=== PATIENT | male | born 1970 | race American Indian/Alaskan Native ===

== ENCOUNTER 2021-09-04 09:14 | Inpatient (IN) | payer SELFPAY ==
[2021-09-04] MEDS ORDERED: SODIUM CHLORIDE 0.9% 500 ML 500 ML IV ONE (09:17)
[2021-09-04] MEDS ORDERED: ONDANSETRON 4 MG/2 ML INJ IV ONE (09:17)
[2021-09-04] MEDS ORDERED: SODIUM CHLORIDE 0.9% 1000 ML 1,000 ML ONE (09:18)
--- NOTE | 2021-09-04 09:23 | Emergency Department Report ---
ED Chest Pain HPI - General Chief Complaint: Chest Pain Stated Complaint: STEMI Time Seen by Provider: 09/04/21 09:16 Source: patient, EMS (Verbal report received from emergency medical services. EMS documentation not available at time of chart dictation ), RN notes reviewed Mode of arrival: Stretcher Limitations: Physical Limitation - History of Present Illness Initial Comments: This patient is a 51-year-old gentleman, who presents to the ER with EMS, with an EMS articulated complaint of inferior wall STEMI. EMS reports that the patient is hypotensive in the field, and collapsed. The patient complains of crushing central chest pain. EMS gave aspirin in the field, but appropriately did not administer nitroglycerin. The patient denies travel, surgery, immobilization, leg pain or leg swelling, DVT/PE risk factors. He denies hematemesis and bright red blood per rectum. Prehospital EKG is reviewed by myself, and I agree that is consistent with inferior wall STEMI. The prehospital EKG was transmitted to our diagnostic technologist, Dr. Perez, prior to the patient arriving to this emergency room, and cardiac catheterization lab was activated, and a code STEMI was called overhead. The patient was greeted by myself emergently in room 22, in conjunction with cardiology nurse practitioner, Mr. Joe Crane. The cardiac catheterization lab has requested that the patient be emergently transported to the catheterization lab for intervention. Heparin bolus is ordered. Defer to inpatient team to follow-up on laboratory studies, chest x-ray, and vital signs. Critical care physician, Dr. Vieyra, Will follow in consultation for ICU admission. Hospital physician, Dr. Adria Xiao, To admit patient to the medical service. Complaint: chest pain, other -: Sudden Pain Location: substernal Pain Radiation: none Severity: severe Quality: other (Crushing and pressure) Consistency: constant Improves With: nothing Worsens With: nothing Aspirin use within the Past 7 Days: (1) Yes - Related Data On Oral Contraceptives: No Home Medications Medication Instructions Recorded Confirmed Last Taken No Known Home Medications [No 09/04/21 09/04/21 Unknown Reported Home Medications] Allergies Allergy/AdvReac Type Severity Reaction Status Date / Time No Known Allergies Allergy Unverified 09/04/21 09:51 Heart Score - HEART Score History: Highly suspicious EKG: Significant ST-depression Age: < 45 Risk factors: 1-2 risk factors Troponin: < normal limit HEART Score: 5 - EKG Read Time Time EKG Completed: 09:17 EKG Read Time: 09:17 - Critical Actions Critical Actions: 4-6 pts:12-16.6% risk of adverse cardiac event. Should be admitted ED Review of Systems ROS: Stated complaint: STEMI Other details as noted in HPI Comment: Unobtainable due to pts medical conditions ED Past Medical Hx - Medications Home Medications: Home Medications Medication Instructions Recorded Confirmed Last Taken Type No Known Home Medications [No 09/04/21 09/04/21 Unknown History Reported Home Medications] ED Physical Exam - General Limitations: Physical Limitation General appearance: alert, anxious, in distress, obese - Head Head exam: Present: atraumatic, normocephalic - Eye Eye exam: Present: normal appearance, EOMI. Absent: nystagmus - ENT ENT exam: Present: normal exam, normal orophraynx, mucous membranes moist, normal external ear exam - Neck Neck exam: Present: normal inspection, full ROM. Absent: tenderness, meningismus - Respiratory Respiratory exam: Present: normal lung sounds bilaterally. Absent: respiratory distress, wheezes, rales, rhonchi, stridor - Cardiovascular Cardiovascular Exam: Present: regular rate, normal rhythm, normal heart sounds. Absent: bradycardia, tachycardia, irregular rhythm, systolic murmur, diastolic murmur, rubs, gallop - GI/Abdominal GI/Abdominal exam: Present: soft. Absent: distended, tenderness, guarding, rebound, rigid, pulsatile mass - Rectal Rectal exam: Present: deferred - Extremities Exam Extremities exam: Present: normal inspection, full ROM, other (2+ pulses noted in the bilateral upper and lower extremities. There is no palpable cord. negative Homans sign. Muscular compartments are soft. The pelvis is stable.). Absent: calf tenderness - Back Exam Back exam: Present: normal inspection. Absent: tenderness, CVA tenderness (R), CVA tenderness (L), paraspinal tenderness, vertebral tenderness - Neurological Exam Neurological exam: Present: alert, other (No facial droop. Tongue midline. Extraocular movements intact bilaterally. Facial sensation intact to light touch in V1, V2, V3 distribution bilaterally. 5 and a 5 strength in 4 extremities. Sensation intact to light touch in 4 extremities.). Absent: motor sensory deficit - Psychiatric Psychiatric exam: Present: anxious - Skin Skin exam: Present: warm, dry, intact, normal color. Absent: rash ED Course Vital Signs 09/04/21 09/04/21 09/04/21 11:13 11:32 11:40 Pulse Rate 70 81 Respiratory 23 23 Rate Blood Pressure O2 Sat by Pulse 94 93 96 Oximetry 09/04/21 09/04/21 09/04/21 11:50 12:00 12:11 Pulse Rate 66 62 Respiratory 20 17 Rate Blood Pressure 142/88 123/71 O2 Sat by Pulse 95 95 94 Oximetry - Reevaluation(s) Reevaluation #1: 09/04/21 09:42 Differential diagnosis, including but not limited to: Acute coronary syndrome, Prinzmetal's angina, pericarditis, myocarditis Assessment and plan: 51-year-old gentleman with probable inferior wall STEMI, emergently transported to the cardiac catheterization lab for cardiac catheterization and definitive therapy. Due to the time sensitive nature of STEMI, do not have complete set of vital signs here in the emergency room, nor do we have laboratory studies or x-ray. The patient is admitted to the critical care unit, with critical care, cardiology to follow in consultation and manage definitively, and hospital medicine to admit. I will defer to the inpatient team to follow-up on the ordered diagnostics. Morphine was ordered, heparin ordered, and EMS administered aspirin. VERN score - Vern Score Age > 65: (0) No Aspirin use within the Past 7 Days: (1) Yes 3 or more CAD Risk Factors: (0) No 2 or more Angina events in past 24 hrs: (0) No Known CAD with more than 50% Stenosis: (1) Yes Elevated Cardiac Markers: (0) No ST Deviation Greater than 0.5mm: (1) Yes VERN Score: 3 ED Medical Decision Making - Lab Data Result diagrams: 09/04/21 09:39 09/04/21 11:07 Vital Signs 09/04/21 09/04/21 09/04/21 11:13 11:32 11:40 Pulse Rate 70 81 Respiratory 23 23 Rate Blood Pressure O2 Sat by Pulse 94 93 96 Oximetry 09/04/21 09/04/21 09/04/21 11:50 12:00 12:11 Pulse Rate 66 62 Respiratory 20 17 Rate Blood Pressure 142/88 123/71 O2 Sat by Pulse 95 95 94 Oximetry Lab Results 09/04/21 09/04/21 09/04/21 Range/Units 09:39 09:39 09:39 WBC 5.9 (4.5-11.0) K/mm3 RBC 5.26 H (3.65-5.03) M/mm3 Hgb 14.3 (11.8-15.2) gm/dl Hct 43.4 (35.5-45.6) % MCV 82 L (84-94) fl MCH 27 L (28-32) pg MCHC 33 (32-34) % RDW 15.6 H (13.2-15.2) % Plt Count 260 (140-440) K/mm3 Lymph % (Auto) 42.0 H (13.4-35.0) % [place] % (Auto) 13.6 H (0.0-7.3) % Eos % (Auto) 1.5 (0.0-4.3) % Baso % (Auto) 0.6 (0.0-1.8) % Lymph # (Auto) 2.5 (1.2-5.4) K/mm3 [place] # (Auto) 0.8 (0.0-0.8) K/mm3 Eos # (Auto) 0.1 (0.0-0.4) K/mm3 Baso # (Auto) 0.0 (0.0-0.1) K/mm3 Seg Neutrophils % 42.3 (40.0-70.0) % Seg Neutrophils # 2.5 (1.8-7.7) K/mm3 PT 14.8 (12.2-14.9) Sec. INR 1.04 (0.87-1.13) APTT 194.7 H* (24.2-36.6) Sec. Sodium 131 L (137-145) mmol/L Potassium 2.9 L* (3.6-5.0) mmol/L Chloride 97.4 L (98-107) mmol/L Carbon Dioxide 18 L (22-30) mmol/L Anion Gap 19 mmol/L BUN 16 (9-20) mg/dL Creatinine 1.0 (0.8-1.3) mg/dL Estimated GFR > 60 ml/min BUN/Creatinine Ratio 16 % Glucose 160 H (75-100) mg/dL Calcium 9.1 (8.4-10.2) mg/dL Total Creatine Kinase 90 (55-170) units/L CK-MB (CK-2) 1.4 (0.0-4.0) ng/mL CK-MB (CK-2) Rel Index 1.5 (0-4) Troponin T < 0.010 (0.00-0.029) ng/mL Blood Type Antibody Screen 09/04/21 Range/Units 10:30 WBC (4.5-11.0) K/mm3 RBC (3.65-5.03) M/mm3 Hgb (11.8-15.2) gm/dl Hct (35.5-45.6) % MCV (84-94) fl MCH (28-32) pg MCHC (32-34) % RDW (13.2-15.2) % Plt Count (140-440) K/mm3 Lymph % (Auto) (13.4-35.0) % [place] % (Auto) (0.0-7.3) % Eos % (Auto) (0.0-4.3) % Baso % (Auto) (0.0-1.8) % Lymph # (Auto) (1.2-5.4) K/mm3 [place] # (Auto) (0.0-0.8) K/mm3 Eos # (Auto) (0.0-0.4) K/mm3 Baso # (Auto) (0.0-0.1) K/mm3 Seg Neutrophils % (40.0-70.0) % Seg Neutrophils # (1.8-7.7) K/mm3 PT (12.2-14.9) Sec. INR (0.87-1.13) APTT (24.2-36.6) Sec. Sodium (137-145) mmol/L Potassium (3.6-5.0) mmol/L Chloride (98-107) mmol/L Carbon Dioxide (22-30) mmol/L Anion Gap mmol/L BUN (9-20) mg/dL Creatinine (0.8-1.3) mg/dL Estimated GFR ml/min BUN/Creatinine Ratio % Glucose (75-100) mg/dL Calcium (8.4-10.2) mg/dL Total Creatine Kinase (55-170) units/L CK-MB (CK-2) (0.0-4.0) ng/mL CK-MB (CK-2) Rel Index (0-4) Troponin T (0.00-0.029) ng/mL Blood Type A POSITIVE Antibody Screen Negative - EKG Data -: EKG Interpreted by Me - EKG Data When compared to previous EKG there are: previous EKG unavailable 09/04/21 09:43 EKG in the emergency room is interpreted at 09: 1 7 This is a sinus rhythm, with a rate of 88 bpm. There is a normal axis, normal P wave axis, high left ventricular voltage, ST elevation in the inferior leads, and T wave inversion in aVL. This EKG is consistent with an acute STEMI. There is a first-degree AV block, and there is no prior for comparison. Critical Care Time: Yes Critical care time in (mins) excluding proc time.: 35 Critical care attestation.: If time is entered above; I have spent that time in minutes in the direct care of this critically ill patient, excluding procedure time. ED Disposition Clinical Impression: STEMI (ST elevation myocardial infarction) Disposition: ADMITTED INPATIENT Is pt being admited?: Yes Does the pt Need Aspirin: No (GIVEN BY EMS) Condition: Critical
[2021-09-04] MEDS ORDERED: NITROGLYCERIN DRIP 50 MG/250 ML BOTTLE ONE (09:31)
[2021-09-04] MEDS: MIDAZOLAM 2 MG/2 ML INJ ONE ×2 (09:37→09:54)
[2021-09-04] MEDS: fentaNYL 100 MCG/2 ML INJ ONE ×2 (09:37→09:54)
[2021-09-04] MEDS ORDERED: HEPARIN/NS 5000 UNIT/500ML 500 ML IR ONE (09:39)
[2021-09-04] MEDS ORDERED: LIDOCAINE (2%) 20 MG/1 ML VIAL 50 ML MDV INFILTRATI ONE (09:42)
[2021-09-04] MEDS ORDERED: VERAPAMIL 5 MG/2 ML INJ ONE (09:42)
[2021-09-04] MEDS ORDERED: NITROGLYCERIN SYRINGE 3 ML ONE (09:42)
[2021-09-04 09:49] LABS: Basophils % (Auto) 0.6 % (0.0-1.8); Eosinophils # (Auto) 0.1 K/mm3 (0.0-0.4); Eosinophils % (Auto) 1.5 % (0.0-4.3); Hematocrit 43.4 % (35.5-45.6); Hemoglobin 14.3 gm/dl (11.8-15.2); Lymphocytes # (Auto) 2.5 K/mm3 (1.2-5.4); Mean Corpuscular HGB Conc 33 % (32-34); Mean Corpuscular Volume 82 fl (84-94); Monocytes # (Auto) 0.8 K/mm3 (0.0-0.8); Monocytes % (Auto) 13.6 % (0.0-7.3); Platelet Count 260 K/mm3 (140-440); Red Blood Count 5.26 M/mm3 (3.65-5.03); Red Cell Distribution Width 15.6 % (13.2-15.2)
[2021-09-04] MEDS: HEPARIN 1,000 UNIT/1 ML VIAL IV ONE ×2 (09:49→10:17)
[2021-09-04] MEDS ORDERED: MORPHINE 10 MG/1 ML INJ ONE (10:02)
[2021-09-04] MEDS: MORPHINE 4 MG/1 ML INJ IV ONE (10:03)
[2021-09-04 10:06] LABS: Creatine Kinase MB 1.4 ng/mL (0.0-4.0)
[2021-09-04 10:07] LABS: BUN/Creatinine Ratio 16; Blood Urea Nitrogen 16 mg/dL (9-20); Calcium 9.1 mg/dL (8.4-10.2); Hemolysis Index 4
[2021-09-04 10:28] LABS: INR 1.04 (0.87-1.13)
[2021-09-04] MEDS ORDERED: TICAGRELOR 90 MG TAB ONE (10:35)
[2021-09-04] MEDS ORDERED: ACETAMINOPHEN 325 MG TAB PO PRN (11:03)
[2021-09-04] MEDS ORDERED: ONDANSETRON 4 MG/2 ML INJ IV PRN (11:03)
[2021-09-04] MEDS ORDERED: HYDROmorphone 1 MG/1 ML INJ IV PRN (11:05)
[2021-09-04] MEDS ORDERED: MORPHINE 2 MG/1 ML INJ IV PRN (11:05)
[2021-09-04] MEDS ORDERED: METOCLOPRAMIDE 10 MG/2 ML INJ IV PRN (11:05)
[2021-09-04] MEDS ORDERED: SODIUM CHLORIDE 0.9% 1000 ML 1,000 ML IV SCH (11:15)
[2021-09-04] MEDS ORDERED: traMADol 50 MG TAB PO PRN (12:07)
[2021-09-04 12:24] LABS: Partial Thromboplastin Time 194.7 Sec. (24.2-36.6)
[2021-09-04 12:52] LABS: Alanine Aminotransferase 28 units/L (7-56); BUN/Creatinine Ratio 20; Blood Urea Nitrogen 16 mg/dL (9-20); Calcium 8.4 mg/dL (8.4-10.2); Hemolysis Index 9
[2021-09-04] MEDS ORDERED: HEPARIN 10,000 UNITS/10 ML VIAL IV PRN (13:07)
[2021-09-04] MEDS: POTASSIUM CHLORIDE ER 20 MEQ TAB PO SCH (13:49)
[2021-09-04] MEDS ORDERED: HEPARIN/ 0.45% NACL DRIP 25,000 UNIT/500 ML BAG IV SCH (14:00)
[2021-09-04] MEDS ORDERED: CLOPIDOGREL 300 MG TAB PO SCH (14:00)
[2021-09-04 14:04] LABS: Creatine Kinase MB 11.6 ng/mL (0.0-4.0)
[2021-09-04 14:44] LABS: Hematocrit 42.3 % (35.5-45.6); Hemoglobin 13.5 gm/dl (11.8-15.2)
--- NOTE | 2021-09-04 15:15 | Consultation ---
History of Present Illness Consult date: 09/04/21 Requesting physician: KIMBERLY BROCK Reason for consult: other (STEMI) History of present illness: PULMONARY/CCM CONSULT NOTE (Full dictation # [id number]) Please see dictated notes for full details Medications and Allergies Allergies Allergy/AdvReac Type Severity Reaction Status Date / Time No Known Allergies Allergy Unverified 09/04/21 09:51 Home Medications Medication Instructions Recorded Confirmed Last Taken Type No Known Home Medications [No 09/04/21 09/04/21 Unknown History Reported Home Medications] Active Meds: Active Medications Acetaminophen (Acetaminophen 325 Mg Tab) 650 mg PO Q4H PRN PRN Reason: Fever >100.5/[facility] Hydrocodone Bitart/Acetaminophen (Hydrocodone/Acetaminophen 5-325 Mg Tab) 1 each PO Q4H PRN PRN Reason: Pain, Moderate (4-6) Aspirin (Aspirin 81 Mg Tab Chew) 81 mg PO QDAY [facility] Atorvastatin Calcium (Atorvastatin 40 Mg Tab) 80 mg PO QHS [facility] Clopidogrel Bisulfate (Clopidogrel 300 Mg Tab) 300 mg PO ONCE@1400 [facility] Stop: 09/04/21 18:00 Clopidogrel Bisulfate (Clopidogrel 75 Mg Tab) 75 mg PO QDAY [facility] Heparin Sodium (Porcine) (Heparin 10,000 Units/10 Ml Vial) 4,800 unit 40 unit/kg (4800 unit) IV Q6H PRN PRN Reason: Anti-Xa Assay < 0.1 units/ml Sodium Chloride (Nacl 0.9% 1000 Ml) 1,000 mls @ 75 mls/hr IV DIRECT [facility] Stop: 09/05/21 10:00 Heparin Sodium/Sodium Chloride (Heparin/ 0.45% Nacl-25,000 Unit/500 Ml) 25,000 unit in 500 mls @ 20 mls/hr IV TITRATE [facility]; Protocol Last Admin: 09/04/21 13:49 Dose: 1,000 units/hr, 20 mls/hr Metoclopramide HCl (Metoclopramide 10 Mg/2 Ml Inj) 10 mg IV Q6H PRN PRN Reason: Nausea And Vomiting Metoprolol Tartrate (Metoprolol Tartrate 50 Mg Tab) 50 mg PO BID [facility] Ondansetron HCl (Ondansetron 4 Mg/2 Ml Inj) 4 mg IV Q3H PRN PRN Reason: Nausea And Vomiting Potassium Chloride (Potassium Chloride Er 20 Meq Tab) 40 meq PO Q4H [facility] Stop: 09/04/21 18:01 Last Admin: 09/04/21 13:49 Dose: 40 meq Sodium Chloride (Sodium Chloride 0.9% 10 Ml Flush Syringe) 10 ml IV BID GRACE Sodium Chloride (Sodium Chloride 0.9% 10 Ml Flush Syringe) 10 ml IV PRN PRN PRN Reason: LINE FLUSH Tramadol HCl (Tramadol 50 Mg Tab) 50 mg PO Q4H PRN PRN Reason: Pain, Mild (1-3) Physical Examination Vital signs: Vital Signs Pulse Ox 94 09/04/21 11:13 Results - Laboratory Findings CBC and BMP: 09/04/21 12:54 09/04/21 11:07 PT/INR, D-dimer PT 14.8 Sec. (12.2-14.9) 09/04/21 09:39 INR 1.04 (0.87-1.13) 09/04/21 09:39 Abnormal lab findings: Abnormal Labs 09/04/21 09/04/21 09/04/21 09:39 09:39 09:39 RBC 5.26 H MCV 82 L MCH 27 L RDW 15.6 H Lymph % (Auto) 42.0 H [place] % (Auto) 13.6 H APTT 194.7 H* Sodium 131 L Potassium 2.9 L* Chloride 97.4 L Carbon Dioxide 18 L Glucose 160 H Total Creatine Kinase CK-MB (CK-2) CK-MB (CK-2) Rel Index Troponin T 09/04/21 09/04/21 11:07 12:37 RBC MCV MCH RDW Lymph % (Auto) [place] % (Auto) APTT Sodium 128 L Potassium 3.1 L Chloride 95.0 L Carbon Dioxide Glucose 154 H Total Creatine Kinase 189 H CK-MB (CK-2) 11.6 H CK-MB (CK-2) Rel Index 6.1 H Troponin T 0.093 H
[2021-09-04] MEDS ORDERED: DEXTROSE 50% IN WATER (25GM) 50 ML SYRINGE IV PRN (15:29)
--- NOTE | 2021-09-04 16:14 | Consultation ---
History of Present Illness Consult date: 09/04/21 Requesting physician: KIMBERLY BROCK Consult reason: other (STEMI) History of present illness: Patient is a 51-year-old male who denies any past medical history who states that he woke up this morning feeling well went to go see his p.o. when suddenly he developed chest pain and left arm tingling. Patient reported 10 out of 10 crushing chest pain. EMS was called for evaluation, found to be hypotensive, patient was given aspirin, and transported to the [facility] for further evaluation. EKG revealed patient to have an acute STEMI. Patient denies any complaints of shortness of breath, nausea, vomiting or diaphoresis. Patient brought to [facility] for further intervention. Cardiology is consulted for STEMI. Patient is previously unknown to our practice. Past History Past Medical History: No medical history Social history: smoking Family history: CAD Medications and Allergies Allergies Allergy/AdvReac Type Severity Reaction Status Date / Time No Known Allergies Allergy Unverified 09/04/21 09:51 Home Medications Medication Instructions Recorded Confirmed Last Taken Type No Known Home Medications [No 09/04/21 09/04/21 Unknown History Reported Home Medications] Active Meds: Active Medications Acetaminophen (Acetaminophen 325 Mg Tab) 650 mg PO Q4H PRN PRN Reason: Fever >100.5/[place] Hydrocodone Bitart/Acetaminophen (Hydrocodone/Acetaminophen 5-325 Mg Tab) 1 each PO Q4H PRN PRN Reason: Pain, Moderate (4-6) Aspirin (Aspirin 81 Mg Tab Chew) 81 mg PO QDAY [facility] Atorvastatin Calcium (Atorvastatin 40 Mg Tab) 80 mg PO QHS [facility] Clopidogrel Bisulfate (Clopidogrel 300 Mg Tab) 300 mg PO ONCE@1400 [facility] Stop: 09/04/21 18:00 Clopidogrel Bisulfate (Clopidogrel 75 Mg Tab) 75 mg PO QDAY [facility] Dextrose (Dextrose 50% In Water (25gm) 50 Ml Syringe) 50 ml IV Q30MIN PRN; Protocol PRN Reason: Hypoglycemia Famotidine (Famotidine 20 Mg Tab) 20 mg PO QHS [facility] Heparin Sodium (Porcine) (Heparin 10,000 Units/10 Ml Vial) 4,800 unit 40 unit/kg (4800 unit) IV Q6H PRN PRN Reason: Anti-Xa Assay < 0.1 units/ml Sodium Chloride (Nacl 0.9% 1000 Ml) 1,000 mls @ 75 mls/hr IV DIRECT [facility]ACE Stop: 09/05/21 10:00 Heparin Sodium/Sodium Chloride (Heparin/ 0.45% Nacl-25,000 Unit/500 Ml) 25,000 unit in 500 mls @ 20 mls/hr IV TITRATE GRACE; Protocol Last Admin: 09/04/21 13:49 Dose: 1,000 units/hr, 20 mls/hr Nitroglycerin/Dextrose (Tridil Drip 50mg/250ml) 50 mg in 250 mls @ 3 mls/hr IV TITR GRACE; Protocol Insulin Human Regular (Insulin Regular, Human 100 Units/1 Ml) 0 units SUB-Q ACH S GRACE; Protocol Metoclopramide HCl (Metoclopramide 10 Mg/2 Ml Inj) 10 mg IV Q6H PRN PRN Reason: Nausea And Vomiting Metoprolol Tartrate (Metoprolol Tartrate 50 Mg Tab) 50 mg PO BID GRACE Ondansetron HCl (Ondansetron 4 Mg/2 Ml Inj) 4 mg IV Q3H PRN PRN Reason: Nausea And Vomiting Potassium Chloride (Potassium Chloride Er 20 Meq Tab) 40 meq PO Q4H [facility] Stop: 09/04/21 18:01 Last Admin: 09/04/21 13:49 Dose: 40 meq Sodium Chloride (Sodium Chloride 0.9% 10 Ml Flush Syringe) 10 ml IV BID GRACE Sodium Chloride (Sodium Chloride 0.9% 10 Ml Flush Syringe) 10 ml IV PRN PRN PRN Reason: LINE FLUSH Tramadol HCl (Tramadol 50 Mg Tab) 50 mg PO Q4H PRN PRN Reason: Pain, Mild (1-3) Review of Systems Constitutional: no weight loss, no weight gain Ears, nose, mouth and throat: no nasal discharge, no sinus pressure, no sinus pain Cardiovascular: chest pain, no shortness of breath, no dyspnea on exertion Respiratory: no cough, no cough with sputum, no excessive sputum, no hemoptysis Gastrointestinal: no abdominal pain, no nausea, no vomiting Musculoskeletal: no neck stiffness, no neck pain Integumentary: no rash, no pruritis, no redness Neurological: no head injury, no transient paralysis Psychiatric: no anxiety, no memory loss Endocrine: no cold intolerance, no heat intolerance Hematologic/Lymphatic: no easy bruising, no easy bleeding Physical Examination Vital Signs Pulse Ox 94 09/04/21 11:13 General appearance: no acute distress HEENT: Positive: PERRL Neck: Positive: trachea midline Cardiac: Positive: Reg Rate and Rhythm Lungs: Positive: Normal Breath Sounds Neuro: Positive: Grossly Intact Abdomen: Positive: Soft, Active Bowel Sounds Skin: Negative: Rash, Suspicious Lesions, Ulceration Extremities: Present: upper extr. pulses. Absent: edema Results 09/04/21 12:54 09/04/21 11:07 Cardiac Enzymes 09/04/21 09/04/21 09/04/21 Range/Units 09:39 11:07 12:37 AST 22 (5-40) units/L CK-MB (CK-2) 1.4 11.6 H (0.0-4.0) ng/mL Coagulation 09/04/21 Range/Units 09:39 PT 14.8 (12.2-14.9) Sec. INR 1.04 (0.87-1.13) APTT 194.7 H* (24.2-36.6) Sec. CBC 09/04/21 09/04/21 Range/Units 09:39 12:54 WBC 5.9 (4.5-11.0) K/mm3 RBC 5.26 H (3.65-5.03) M/mm3 Hgb 14.3 13.5 (11.8-15.2) gm/dl Hct 43.4 42.3 (35.5-45.6) % Plt Count 260 244 (140-440) K/mm3 Lymph # (Auto) 2.5 (1.2-5.4) K/mm3 [place] # (Auto) 0.8 (0.0-0.8) K/mm3 Eos # (Auto) 0.1 (0.0-0.4) K/mm3 Baso # (Auto) 0.0 (0.0-0.1) K/mm3 Comprehensive Metabolic Panel 09/04/21 09/04/21 Range/Units 09:39 11:07 Sodium 131 L 128 L (137-145) mmol/L Potassium 2.9 L* 3.1 L (3.6-5.0) mmol/L Chloride 97.4 L 95.0 L (98-107) mmol/L Carbon Dioxide 18 L 23 (22-30) mmol/L BUN 16 16 (9-20) mg/dL Creatinine 1.0 0.8 (0.8-1.3) mg/dL Glucose 160 H 154 H (75-100) mg/dL Calcium 9.1 8.4 (8.4-10.2) mg/dL AST 22 (5-40) units/L ALT 28 (7-56) units/L Alkaline Phosphatase 74 (35-129) units/L Total Protein 6.9 (6.3-8.2) g/dL Albumin 4.0 (3.9-5) g/dL - Imaging and Cardiology Echo: pending Cardiac cath: pending EKG interpretations - Telemetry EKG Rhythm: Sinus Rhythm - EKG Sinus rhythms and dysrhythmias: sinus rhythm Myocardial infarction: inferior CO (acute or rec Assessment and Plan Patient is a 51-year-old male who denies any past medical history who was found to have a STEMI STEMI s/p PCI of mid circumflex Tobacco use Plan: EKG shows STEMI and inferior leads Patient for cardiac cath. Patient had stent placed and mid circumflex. See cath report for full details Initiate heparin drip for 24 hours Initiate nitroglycerin drip for pain and blood pressure for 24 hours Initiated dual antiplatelet therapy with aspirin and Plavix. Load patient with Plavix today Initiate metoprolol 50 mg p.o. twice daily and Lipitor 80 mg p.o. nightly Echo pending Trend cardiac enzyme Discussed with patient plan of care and importance of medication compliance. Patient verbalized acknowledgment and agreement Patient seen in conjunction with Dr. Rosas who agrees with this plan of care - Patient Problems (1) STEMI (ST elevation myocardial infarction) Current Visit: Yes Status: Acute
[2021-09-04] MEDS ORDERED: INSULIN REGULAR, HUMAN 100 UNITS/1 ML SUB-Q SCH (16:30)
[2021-09-04] MEDS ORDERED: NITROGLYCERIN DRIP 50 MG/250 ML BOTTLE IV SCH (17:00)
--- NOTE | 2021-09-04 17:22 | Electrocardiograph Report ---
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
[2021-09-04] MEDS: HYDROcodone/ACETAMINOPHEN 5-325 MG TAB PO PRN ×2 (17:45→22:41)
--- NOTE | 2021-09-04 21:17 | Cardiac Catherization Report ---
DATE OF SERVICE: 09/04/2021 CARDIAC CATHETERIZATION AND CORONARY ANGIOGRAPHY REPORT INDICATIONS FOR PROCEDURE: The patient is a 51-year-old -[place] gentleman with no previous medical history, denied any previous cardiac history, on no medication. Smokes 1 pack per day and uses marijuana. He had an acute onset of chest pain and called the paramedics because of chest pain and shortness of breath and EKG evaluated by the paramedics en route and also by the Emergency Room physician, was noted to be showing ST elevations in the inferior leads consistent with the acute inferior injury. Hence, a STEMI protocol was followed and the patient was brought to the catheterization laboratory on an emergency basis. The patient was explained of the diagnosis and is willing to proceed with angiography and intervention if indicated. DESCRIPTION OF PROCEDURE: Then subsequently, the patient was brought to the catheterization laboratory in a chest pain. Blood pressure is elevated and started on IV nitroglycerin. The patient received aspirin and heparin in the Emergency Room. The patient was prepared in the usual fashion. Right wrist area and forearm were thoroughly cleansed with chlorhexidine solution. Sterile drapes were applied. Local anesthesia was given using 2% Xylocaine. Right radial artery access was obtained using 21-gauge arterial puncture needle. A 5-Bur[place] slender sheath was introduced. Initial angiograms of the right coronary artery were obtained using a JR4 guiding catheter and also left ventriculogram was performed using the same catheter. A JL3.5 guiding catheter was used to engage the left coronary artery, this showed evidence of occluded dominant circumflex in the mid part. It was felt that this is the culprit lesion and after obtaining the angiograms, this procedure was converted into interventional procedure. 1. Left heart catheterization and coronary angiography showed left ventriculogram done in LOO projection using hand injection, showed small area of hypokinesis in the inferolateral area. Overall, ejection fraction was felt to be within normal limits. Left ventricular size appeared to be normal. 2. Right coronary artery arises normally from right coronary cusp. There is normal sized right coronary artery, which is a codominant vessel, is showing mild disease. However, there is a fairly large second vessel paralleling the RCA, which is a medium size vessel, shows 50-60% lesion in the mid part, but this is smooth. VERN 3 flow was noted. 3. Left coronary artery arises normally from left coronary cusp. No calcifications noted. Left main without significant disease. LAD, which curves around the apex shows mild 20% lesion in the proximal part. Rest of the LAD shows mild smooth irregularities. Diagonal branches without significant disease. Circumflex artery is represented by multiple branches. However, there is occlusion of the mid part of the circumflex artery in the AV groove before giving rise to a fairly large LV branch and PDA. This appears to be thrombotic. No collaterals were noted. Distal vessel is barely visualized with a VERN 3 flow being zero. Considering the above angiographic pictures, it was converted into intervention of the mid circumflex area. Intervention of the mid circumflex area. The patient has indwelling JL3.[address] Received extra dose of IV heparin. The patient is still having chest pain. Received IV Versed and fentanyl in addition to morphine. The patient is in sinus rhythm with persistent ST elevations. A 0.014 inch Irene XT guidewire was advanced into the distal circumflex artery without difficulty. The lesion initially was dilated with 3.0 x 15 mm Trek balloon few times and VERN 0 flow was converted to VERN 3 flow. Subsequently attempted to insert a 3.5 x 22 mm Tomas Resolute stent. During the attempt, there is a dislocation of the guiding catheter and a complete system including the wire and stent were removed. Re-engaged the left coronary artery and initially 1 Irene XT guidewire was advanced into the mid circumflex artery. A second Irene XT guidewire was advanced into the distal circumflex artery. Subsequently, lesion occluded again and requiring balloon dilation with 3.0 x 15 mm Trek balloon followed by placement of a 3.5 x 22 mm Resolute Tomas stent with some difficulty. However, this stent was placed in the appropriate location and inflated up to 14 atmospheres with very good result. VERN 3 flow was noted post-procedure. No distal embolization or perforation or dissection noted. The patient's chest pain markedly improved. EKG changes improved. Hemodynamically stable. The patient remained in sinus rhythm except for PVCs during reperfusion. At the end of the procedure, the patient's chest pain is markedly improved and EKG changes namely ST elevations in the inferior leads normalized. ACT was checked and it was more than 300 seconds. The patient was given Brilinta 180 mg in the catheterization laboratory. Blood pressure is still elevated and continued on IV nitroglycerin. The lesion in the mid circumflex artery, which is very thrombotic markedly improved with balloon angioplasty and stent placement. VERN 0 flow was converted to VERN III flow. No complications noted. The patient tolerated the procedure well. Final angiograms once were showing no complications, equipment was removed. Radial band will be applied for hemostasis. The patient received as mentioned above Brilinta in addition to aspirin in the catheterization laboratory. FINAL IMPRESSION: Uncomplicated balloon angioplasty and drug-eluting stent placement of the mid circumflex artery, which is a dominant vessel with very good result. Proximal vessel is tortuous, making tracking of the stent difficult. Findings were explained to the patient. I explained the importance of risk factor modification including quitting smoking. The patient will be started on aspirin, antiplatelet agent, Brilinta; however, it was decided later to change to Plavix considering insurance purposes and continued on Lopressor 50 mg b.i.d. in addition to atorvastatin 80 mg. We will monitor his blood pressure. Continue IV nitroglycerin and IV heparin for now. The patient tolerated the procedure well. No untoward complications were noted. TID: [id number] RECEIPT: [id number] JARVIS/VINCE
[2021-09-04 21:36] LABS: Creatine Kinase MB 67.8 ng/mL (0.0-4.0)
[2021-09-04 21:38] LABS: Chol/HDL Ratio 6.09 %
[2021-09-04 21:39] LABS: INR 0.94 (0.87-1.13)
[2021-09-04 21:40] LABS: Partial Thromboplastin Time 46.5 Sec. (24.2-36.6)
[2021-09-04] MEDS ORDERED: TICAGRELOR 90 MG TAB PO SCH (22:00)
[2021-09-04] MEDS: METOPROLOL TARTRATE 50 MG TAB PO SCH (22:43)
[2021-09-04] MEDS: FAMOTIDINE 20 MG TAB PO SCH (22:44)
--- NOTE | 2021-09-05 01:25 | History and Physical Report ---
History of Present Illness Date of examination: 09/04/21 Date of admission: 09/04/21 11:03 Chief complaint: Crushing chest pain around 8:30 AM History of present illness: 51-year-old male comes in for crushing central chest pain since 19 minutes. EMS was called. Patient was hypotensive and passed out. Chest pain is about 10 on a scale of 1-10. Diaphoresis present. EMS gave aspirin in the field. Did not administer nitroglycerin because of the low blood pressure. Patient denies travel. No recent immobilization. No hematemesis. No fever or chills. Code STEMI was called because her EKG changes consistent with inferior wall STEMI. Prehospital EKG was transmitted to the bar staff . Patient was immediately taken to the Cost Coordinator for code STEMI Heart Score - HEART Score History: Highly suspicious EKG: Significant ST-depression Age: < 45 Risk factors: 1-2 risk factors Troponin: < normal limit HEART Score: 5 - EKG Read Time Time EKG Completed: :17 EKG Read Time: :17 - Critical Actions Critical Actions: 4-6 pts:12-16.6% risk of adverse cardiac event. Should be admitted Past medical history none past surgical history not available family history Htn social history smokes 1 pack a day and marijuana intermittently Review of Systems ROS: CVS crushing chest pain for 1 hour prior to admission and shortness of breath and diaphoresis and syncope Constitutional no weight loss or weight gain no fever or chills HEENT no sore throat no post nasal drip no diplopia Neck no neck stiffness no lymph gland enlargement Chest and lungs no shortness of breath cough or wheezing GI no nausea no vomiting no diarrhea Genitourinary system no dysuria no flank pain Musculoskeletal system no muscle pains no joint pains 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 Skin no rash no itching Psychiatric no depression no homicidal or suicidal tendencies Hematologic no lymphedema or bruising Endocrine no polydipsia no polyuria no cold intolerance no heat intolerance Past History Past Medical History: No medical history Social history: smoking Family history: CAD Medications and Allergies Allergies Allergy/AdvReac Type Severity Reaction Status Date / Time No Known Allergies Allergy Unverified 09/04/21 09:51 Home Medications Medication Instructions Recorded Confirmed Last Taken Type No Known Home Medications [No 09/04/21 09/04/21 Unknown History Reported Home Medications] Active Meds: Active Medications Acetaminophen (Acetaminophen 325 Mg Tab) 650 mg PO Q4H PRN PRN Reason: Fever >100.5/HAWTHORNE Hydrocodone Bitart/Acetaminophen (Hydrocodone/Acetaminophen 5-325 Mg Tab) 1 each PO Q4H PRN PRN Reason: Pain, Moderate (4-6) Last Admin: 09/04/21 22:41 Dose: 1 each Aspirin (Aspirin 81 Mg Tab Chew) 81 mg PO QDAY GRACE Atorvastatin Calcium (Atorvastatin 40 Mg Tab) 80 mg PO QHS GRACE Last Admin: 09/04/21 22:42 Dose: 80 mg Clopidogrel Bisulfate (Clopidogrel 75 Mg Tab) 75 mg PO QDAY GRACE Dextrose (Dextrose 50% In Water (25gm) 50 Ml Syringe) 50 ml IV Q30MIN PRN; Protocol PRN Reason: Hypoglycemia Famotidine (Famotidine 20 Mg Tab) 20 mg PO QHS GRACE Last Admin: 09/04/21 22:44 Dose: 20 mg Heparin Sodium (Porcine) (Heparin 10,000 Units/10 Ml Vial) 4,800 unit 40 unit/kg (4800 unit) IV Q6H PRN PRN Reason: Anti-Xa Assay < 0.1 units/ml Sodium Chloride (Nacl 0.9% 1000 Ml) 1,000 mls @ 75 mls/hr IV DIRECT GRACE Stop: 09/05/21 10:00 Heparin Sodium/Sodium Chloride (Heparin/ 0.45% Nacl-25,000 Unit/500 Ml) 25,000 unit in 500 mls @ 20 mls/hr IV TITRATE GRACE; Protocol Last Admin: 09/04/21 13:49 Dose: 1,000 units/hr, 20 mls/hr Nitroglycerin/Dextrose (Tridil Drip 50mg/250ml) 50 mg in 250 mls @ 3 mls/hr IV TITR GRACE; Protocol Last Titration: 09/04/21 18:19 Dose: 45 mcg/min, 13.5 mls/hr Insulin Human Regular (Insulin Regular, Human 100 Units/1 Ml) 0 units SUB-Q ACHS GRACE; Protocol Metoclopramide HCl (Metoclopramide 10 Mg/2 Ml Inj) 10 mg IV Q6H PRN PRN Reason: Nausea And Vomiting Metoprolol Tartrate (Metoprolol Tartrate 50 Mg Tab) 50 mg PO BID GRACE Last Admin: 09/04/21 22:43 Dose: 50 mg Ondansetron HCl (Ondansetron 4 Mg/2 Ml Inj) 4 mg IV Q3H PRN PRN Reason: Nausea And Vomiting Sodium Chloride (Sodium Chloride 0.9% 10 Ml Flush Syringe) 10 ml IV BID GRACE Last Admin: 09/04/21 22:46 Dose: 10 ml Sodium Chloride (Sodium Chloride 0.9% 10 Ml Flush Syringe) 10 ml IV PRN PRN PRN Reason: LINE FLUSH Tramadol HCl (Tramadol 50 Mg Tab) 50 mg PO Q4H PRN PRN Reason: Pain, Mild (1-3) Exam - Constitutional Vitals: Temp Pulse Resp BP Pulse Ox 98.0 F 96 H 13 137/83 96 09/05/21 00:00 09/04/21 22:43 09/04/21 20:00 09/04/21 22:43 09/04/21 20:00 General appearance: Present: no acute distress, mild distress, well-nourished - EENT Eyes: Present: PERRL ENT: hearing intact, clear oral mucosa - Neck Neck: Present: supple, normal ROM - Respiratory Respiratory effort: normal Respiratory: bilateral: CTA - Cardiovascular Heart rate: 78 Rhythm: regular Heart Sounds: Present: S1 & S2. Absent: rub, click - Extremities Extremities: pulses symmetrical, No edema Peripheral Pulses: within normal limits - Abdominal General gastrointestinal: Present: soft, non-tender, non-distended, normal bowel sounds Male genitourinary: Present: normal - Integumentary Integumentary: Present: clear, warm, dry - Musculoskeletal Musculoskeletal: gait normal, strength equal bilaterally - Psychiatric Psychiatric: appropriate mood/affect, intact judgment & insight - Neurologic Neurologic: CNII-XII intact, moves all extremities HEART Score - HEART Score EKG: Significant ST-depression Age: < 45 Risk factors: 1-2 risk factors Troponin: Troponin T 1.380 ng/mL (0.00-0.029) H* D 09/04/21 21:07 Troponin: < normal limit - Critical Actions Critical Actions: 4-6 pts:12-16.6% risk of adverse cardiac event. Should be admitted Results - Labs CBC & Chem 7: 09/04/21 12:54 09/04/21 11:07 Labs: Laboratory Last Values WBC 5.9 K/mm3 (4.5-11.0) 09/04/21 09:39 RBC 5.26 M/mm3 (3.65-5.03) H 09/04/21 09:39 Hgb 13.5 gm/dl (11.8-15.2) 09/04/21 12:54 Hct 42.3 % (35.5-45.6) 09/04/21 12:54 MCV 82 fl (84-94) L 09/04/21 09:39 MCH 27 pg (28-32) L 09/04/21 09:39 MCHC 33 % (32-34) 09/04/21 09:39 RDW 15.6 % (13.2-15.2) H 09/04/21 09:39 Plt Count 244 K/mm3 (140-440) 09/04/21 12:54 Lymph % (Auto) 42.0 % (13.4-35.0) H 09/04/21 09:39 Wayne % (Auto) 13.6 % (0.0-7.3) H 09/04/21 09:39 Eos % (Auto) 1.5 % (0.0-4.3) 09/04/21 09:39 Baso % (Auto) 0.6 % (0.0-1.8) 09/04/21 09:39 Lymph # (Auto) 2.5 K/mm3 (1.2-5.4) 09/04/21 09:39 Wayne # (Auto) 0.8 K/mm3 (0.0-0.8) 09/04/21 09:39 Eos # (Auto) 0.1 K/mm3 (0.0-0.4) 09/04/21 09:39 Baso # (Auto) 0.0 K/mm3 (0.0-0.1) 09/04/21 09:39 Seg Neutrophils % 42.3 % (40.0-70.0) 09/04/21 09:39 Seg Neutrophils # 2.5 K/mm3 (1.8-7.7) 09/04/21 09:39 PT 13.6 Sec. (12.2-14.9) 09/04/21 21:07 INR 0.94 (0.87-1.13) 09/04/21 21:07 APTT 46.5 Sec. (24.2-36.6) H 09/04/21 21:07 Sodium 128 mmol/L (137-145) L 09/04/21 11:07 Potassium 3.1 mmol/L (3.6-5.0) L 09/04/21 11:07 Chloride 95.0 mmol/L (98-107) L 09/04/21 11:07 Carbon Dioxide 23 mmol/L (22-30) 09/04/21 11:07 Anion Gap 13 mmol/L 09/04/21 11:07 BUN 16 mg/dL (9-20) 09/04/21 11:07 Creatinine 0.8 mg/dL (0.8-1.3) 09/04/21 11:07 Estimated GFR > 60 ml/min 09/04/21 11:07 BUN/Creatinine Ratio 20 % 09/04/21 11:07 Glucose 154 mg/dL (75-100) H 09/04/21 11:07 Hemoglobin A1c 6.1 % (4-6) H 09/04/21 21:07 Calcium 8.4 mg/dL (8.4-10.2) 09/04/21 11:07 Total Bilirubin 0.20 mg/dL (0.1-1.2) 09/04/21 11:07 AST 22 units/L (5-40) 09/04/21 11:07 ALT 28 units/L (7-56) 09/04/21 11:07 Alkaline Phosphatase 74 units/L (35-129) 09/04/21 11:07 Total Creatine Kinase 807 units/L (55-170) H 09/04/21 21:07 CK-MB (CK-2) 67.8 ng/mL (0.0-4.0) H 09/04/21 21:07 CK-MB (CK-2) Rel Index 8.4 (0-4) H 09/04/21 21:07 Troponin T 1.380 ng/mL (0.00-0.029) H* D 09/04/21 21:07 Total Protein 6.9 g/dL (6.3-8.2) 09/04/21 11:07 Albumin 4.0 g/dL (3.9-5) 09/04/21 11:07 Albumin/Globulin Ratio 1.4 % 09/04/21 11:07 Triglycerides 158 mg/dL (2-149) H 09/04/21 21:07 Cholesterol 195 mg/dL (50-199) 09/04/21 21:07 LDL Cholesterol Direct 147 mg/dL (50-130) H 09/04/21 21:07 HDL Cholesterol 32 mg/dL (40-59) L 09/04/21 21:07 Cholesterol/HDL Ratio 6.09 % 09/04/21 21:07 Blood Type A POSITIVE 09/04/21 10:30 Antibody Screen Negative 09/04/21 10:30 Short CBC 09/04/21 09/04/21 Range/Units 09:39 12:54 WBC 5.9 (4.5-11.0) K/mm3 Hgb 14.3 13.5 (11.8-15.2) gm/dl Hct 43.4 42.3 (35.5-45.6) % Plt Count 260 244 (140-440) K/mm3 BMP 09/04/21 09/04/21 09:39 11:07 Sodium 131 L 128 L Potassium 2.9 L* 3.1 L Chloride 97.4 L 95.0 L Carbon Dioxide 18 L 23 BUN 16 16 Creatinine 1.0 0.8 Glucose 160 H 154 H Calcium 9.1 8.4 Cardiac Enzymes 09/04/21 09/04/21 09/04/21 Range/Units 09:39 12:37 21:07 Total Creatine Kinase 90 189 H 807 H (55-170) units/L CK-MB (CK-2) 1.4 11.6 H 67.8 H (0.0-4.0) ng/mL Troponin T < 0.010 0.093 H 1.380 H* D (0.00-0.029) ng/mL Liver Function 09/04/21 Range/Units 11:07 Total Bilirubin 0.20 (0.1-1.2) mg/dL AST 22 (5-40) units/L ALT 28 (7-56) units/L Alkaline Phosphatase 74 (35-129) units/L Albumin 4.0 (3.9-5) g/dL Short CBC 09/04/21 09/04/21 Range/Units 09:39 12:54 WBC 5.9 (4.5-11.0) K/mm3 Hgb 14.3 13.5 (11.8-15.2) gm/dl Hct 43.4 42.3 (35.5-45.6) % Plt Count 260 244 (140-440) K/mm3 BMP 09/04/21 09/04/21 09:39 11:07 Sodium 131 L 128 L Potassium 2.9 L* 3.1 L Chloride 97.4 L 95.0 L Carbon Dioxide 18 L 23 BUN 16 16 Creatinine 1.0 0.8 Glucose 160 H 154 H Calcium 9.1 8.4 Cardiac Enzymes 09/04/21 09/04/21 09/04/21 Range/Units 09:39 12:37 21:07 Total Creatine Kinase 90 189 H 807 H (55-170) units/L CK-MB (CK-2) 1.4 11.6 H 67.8 H (0.0-4.0) ng/mL Troponin T < 0.010 0.093 H 1.380 H* D (0.00-0.029) ng/mL Liver Function 09/04/21 Range/Units 11:07 Total Bilirubin 0.20 (0.1-1.2) mg/dL AST 22 (5-40) units/L ALT 28 (7-56) units/L Alkaline Phosphatase 74 (35-129) units/L Albumin 4.0 (3.9-5) g/dL - Imaging and Cardiology EKG: report reviewed (ST elevation VT in the inferior wall leads) Chest x-ray: report reviewed (No acute findings) Imaging and Cardiology: Cath report Left heart cath and coronary angiography showed small area of hypokinesis in the inferolateral area. Overall ejection fraction was felt to be within normal limi ts. Left ventricular size appears to be normal. Right coronary artery arises from the right coronary cusp. Final impression uncomplicated balloon angioplasty and drug-eluting 7 stent placement of the mid circumflex artery which is the dominant vessel with residual result. Proximal vessel is tortuous making clamping of the stent difficult. Assessment and Plan Assessment and plan: Critical care statement The high probability OF a clinically significant sudden or life-threatening deterioration of the cardiorespiratory system and endocrine system required my full and direct attention, intervention and postoperative management. The aggregate critical care time was 35 minutes.. The time is in addition to time spent performing reported procedures but includes the followin: Data review and interpretation 2: Patient assessment and monitoring of vital signs 3: Documentation 4:: Medication orders and management Advance Directives: Yes (Full code) VTE prophylaxis?: Chemical Plan of care discussed with patient/family: Yes - Patient Problems (1) STEMI (ST elevation myocardial infarction) Current Visit: Yes Status: Acute Plan to address problem: Patient had PCI and drug-eluting stent in circumflex artery. Mild hypokinesis of the inferolateral wall. Ejection fraction is near normal. Patient to be on Aspirin and Plavix. Plavix in place of Brilinta because of insurance purposes. Cardiology consult appreciated. Cardiology procedure appreciated. (2) Hypotension Current Visit: Yes Status: Acute Plan to address problem: IV fluids for now (3) Syncope and collapse Current Visit: Yes Status: Acute Plan to address problem: Secondary to vasovagal response and chest pain. No further work-up. (4) Hypokalemia Current Visit: Yes Status: Acute Plan to address problem: Supplemented (5) Hyponatremia Current Visit: Yes Status: Acute Plan to address problem: Normal saline for now (6) Nicotine dependence Current Visit: Yes Status: Chronic Qualifiers: Nicotine product type: cigarettes Plan to address problem: Smoking cessation was counseled > 10 minutes NicoDerm patch initiated (7) Marijuana use Current Visit: Yes Status: Acute Plan to address problem: Counseled (8) DVT prophylaxis Current Visit: Yes Status: Acute Plan to address problem: Patient on IV heparin and GI prophylaxis (9) Advance care planning Current Visit: Yes Status: Acute Plan to address problem: Disease education conducted, care plan discussed, diagnosis discussed, prognosis discussed. Patient is full code. Patient acknowledges understanding and agreement with care plan. +30 minutes.
[2021-09-05] MEDS ORDERED: POTASSIUM CHLORIDE ER 20 MEQ TAB PO ONE (02:05)
[2021-09-05] MEDS: POTASSIUM CHLORIDE ER 20 MEQ TAB PO SCH (03:31)
[2021-09-05 05:55] LABS: Basophils % (Auto) 0.3 % (0.0-1.8); Eosinophils # (Auto) 0.1 K/mm3 (0.0-0.4); Eosinophils % (Auto) 1.2 % (0.0-4.3); Hematocrit 41.2 % (35.5-45.6); Hemoglobin 13.5 gm/dl (11.8-15.2); Lymphocytes # (Auto) 1.8 K/mm3 (1.2-5.4); Lymphocytes % (Auto) 30.3 % (13.4-35.0); Mean Corpuscular HGB Conc 33 % (32-34); Mean Corpuscular Volume 83 fl (84-94); Monocytes # (Auto) 0.6 K/mm3 (0.0-0.8); Monocytes % (Auto) 10.6 % (0.0-7.3); Platelet Count 217 K/mm3 (140-440); Red Blood Count 4.94 M/mm3 (3.65-5.03); Red Cell Distribution Width 15.7 % (13.2-15.2)
[2021-09-05 06:17] LABS: Alanine Aminotransferase 32 units/L (7-56); Albumin 3.9 g/dL (3.9-5); BUN/Creatinine Ratio 16; Blood Urea Nitrogen 13 mg/dL (9-20); Calcium 8.6 mg/dL (8.4-10.2); Hemolysis Index 8
[2021-09-05] MEDS: HEPARIN 1,000 UNIT/1 ML VIAL IV ONE (09:19)
[2021-09-05] MEDS: MORPHINE 4 MG/1 ML INJ IV ONE (09:19)
[2021-09-05] MEDS: INSULIN LISPRO 100 UNIT/ML SUB-Q SCH ×4 (09:20→21:28)
[2021-09-05] MEDS: ASPIRIN 81 MG TAB CHEW PO SCH (09:49)
[2021-09-05] MEDS: METOPROLOL TARTRATE 50 MG TAB PO SCH ×2 (09:49→21:26)
[2021-09-05] MEDS ORDERED: ENOXAPARIN 40 MG/0.4 ML INJ SUB-Q SCH (10:00)
[2021-09-05] MEDS ORDERED: ONDANSETRON 4 MG/2 ML INJ IV PRN (10:00)
--- NOTE | 2021-09-05 10:42 | Progress Note ---
Assessment and Plan Patient is a 51-year-old male who denies any past medical history who was found to have a STEMI STEMI s/p PCI of mid circumflex Tobacco use Plan: Continue Plavix aspirin statin and beta-blockade. Discontinue IV heparin and nitroglycerin. Follow-up echocardiography. Patient is entirely asymptomatic. Okay to transfer to telemetry. Discussed importance of risk factor modification and lifestyle changes. Likely discharge in a.m. - Patient Problems (1) Marijuana use Current Visit: Yes Status: Acute (2) STEMI (ST elevation myocardial infarction) Current Visit: Yes Status: Acute Subjective Interval history: Patient is seen at bedside. Nurse also at bedside. Feeling great and no chest pain. Objective Vital Signs Temp Pulse Pulse Resp BP Pulse Ox 09/05/21 09:49 63 124/67 09/05/21 09:00 60 24 122/63 97 09/05/21 08:30 73 13 111/56 97 09/05/21 08:00 60 60 17 134/74 98 09/05/21 07:30 57 L 14 135/81 97 09/05/21 07:00 66 22 112/85 98 09/05/21 06:30 59 L 15 119/79 98 09/05/21 06:00 62 19 109/72 95 09/05/21 05:30 57 L 20 122/73 98 09/05/21 05:00 58 L 18 116/74 96 09/05/21 04:30 62 18 129/76 97 09/05/21 04:00 62 20 136/80 97 09/05/21 03:58 98.2 F 09/05/21 03:30 62 13 129/74 97 09/05/21 03:00 56 L 16 128/73 97 09/05/21 02:30 60 15 125/71 97 09/05/21 02:00 58 L 16 138/72 96 09/05/21 01:30 62 17 148/83 96 09/05/21 01:00 58 L 16 125/73 97 09/05/21 00:30 65 18 129/69 95 09/05/21 00:00 98.0 F 64 15 152/77 96 09/04/21 23:41 14 09/04/21 23:30 61 17 134/81 97 09/04/21 23:00 68 23 122/79 98 09/04/21 22:43 96 H 137/83 09/04/21 22:30 69 22 137/83 98 09/04/21 22:00 65 15 129/69 98 09/04/21 21:30 77 18 129/69 97 09/04/21 21:00 72 18 128/75 95 09/04/21 20:30 62 18 130/73 97 09/04/21 20:04 70 21 143/75 95 09/04/21 20:00 97.5 F L 71 13 118/69 96 09/04/21 19:30 67 18 119/68 97 09/04/21 19:00 74 30 H 139/79 96 09/04/21 18:30 61 20 132/77 97 09/04/21 18:00 66 20 143/84 98 09/04/21 17:50 60 17 142/83 98 09/04/21 17:45 22 09/04/21 17:40 64 23 139/85 97 09/04/21 17:30 68 17 141/94 98 09/04/21 17:20 70 20 141/94 97 09/04/21 17:10 69 14 145/87 99 09/04/21 17:00 65 21 145/87 97 09/04/21 16:50 74 15 166/92 98 09/04/21 16:40 62 17 131/78 98 09/04/21 16:30 61 21 131/78 97 09/04/21 16:20 64 23 142/77 95 09/04/21 16:10 79 19 146/86 97 09/04/21 16:00 69 17 146/86 94 09/04/21 15:50 70 16 143/81 98 09/04/21 15:40 72 11 L 145/79 98 09/04/21 15:30 71 19 133/79 98 09/04/21 15:20 64 24 133/79 96 09/04/21 15:10 63 20 154/96 98 09/04/21 15:00 97.3 F L 71 15 154/96 97 09/04/21 14:50 70 20 166/84 96 09/04/21 14:40 70 24 170/65 98 09/04/21 14:30 70 19 176/87 96 09/04/21 14:20 75 15 176/87 99 09/04/21 14:10 62 22 129/82 96 09/04/21 14:00 73 19 149/83 98 09/04/21 13:50 73 26 H 149/83 97 09/04/21 13:40 62 22 142/82 97 09/04/21 13:30 65 24 142/82 96 09/04/21 13:20 66 25 H 148/83 96 09/04/21 13:10 75 13 114/69 98 09/04/21 13:00 74 14 114/69 97 09/04/21 12:50 68 19 128/80 98 09/04/21 12:40 69 23 129/72 99 09/04/21 12:30 67 18 129/72 95 09/04/21 12:20 72 17 124/77 96 09/04/21 12:11 94 09/04/21 12:10 62 16 123/71 96 09/04/21 12:00 62 17 123/71 95 09/04/21 11:50 66 20 142/88 95 09/04/21 11:40 81 23 96 09/04/21 11:32 70 23 93 09/04/21 11:13 94 - Physical Examination HEENT: Positive: PERRL Neck: Positive: trachea midline Neuro: Positive: Grossly Intact Abdomen: Positive: Soft, Active Bowel Sounds Skin: Negative: Rash, Suspicious Lesions, Ulceration Extremities: Present: upper extr. pulses. Absent: edema - Labs and Meds Cardiac Enzymes 09/04/21 09/04/21 09/04/21 Range/Units 11:07 12:37 21:07 AST 22 (5-40) units/L CK-MB (CK-2) 11.6 H 67.8 H (0.0-4.0) ng/mL 09/05/21 Range/Units 05:10 AST 55 H (5-40) units/L CK-MB (CK-2) (0.0-4.0) ng/mL Coagulation 09/04/21 09/04/21 Range/Units 09:39 21:07 PT 14.8 13.6 (12.2-14.9) Sec. INR 0.94 (0.87-1.13) APTT 194.7 H* 46.5 H (24.2-36.6) Sec. Lipids 09/04/21 Range/Units 21:07 Triglycerides 158 H (2-149) mg/dL Cholesterol 195 (50-199) mg/dL HDL Cholesterol 32 L (40-59) mg/dL Cholesterol/HDL Ratio 6.09 % CBC 09/04/21 09/05/21 Range/Units 12:54 05:10 WBC 5.9 (4.5-11.0) K/mm3 RBC 4.94 (3.65-5.03) M/mm3 Hgb 13.5 13.5 (11.8-15.2) gm/dl Hct 42.3 41.2 (35.5-45.6) % Plt Count 244 217 (140-440) K/mm3 Lymph # (Auto) 1.8 (1.2-5.4) K/mm3 [place] # (Auto) 0.6 (0.0-0.8) K/mm3 Eos # (Auto) 0.1 (0.0-0.4) K/mm3 Baso # (Auto) 0.0 (0.0-0.1) K/mm3 Comprehensive Metabolic Panel 09/04/21 09/05/21 Range/Units 11:07 05:10 Sodium 128 L 138 D (137-145) mmol/L Potassium 3.1 L 4.7 D (3.6-5.0) mmol/L Chloride 95.0 L 104.3 (98-107) mmol/L Carbon Dioxide 23 24 (22-30) mmol/L BUN 16 13 (9-20) mg/dL Creatinine 0.8 0.8 (0.8-1.3) mg/dL Glucose 154 H 117 H (75-100) mg/dL Calcium 8.4 8.6 (8.4-10.2) mg/dL AST 22 55 H (5-40) units/L ALT 28 32 (7-56) units/L Alkaline Phosphatase 74 73 (35-129) units/L Total Protein 6.9 6.4 (6.3-8.2) g/dL Albumin 4.0 3.9 (3.9-5) g/dL - Imaging and Cardiology EKG: report reviewed (ST elevation MN in the inferior wall leads) Echo: pending Cardiac cath: pending - EKG Sinus rhythms and dysrhythmias: sinus rhythm Myocardial infarction: inferior MN (acute or rec
--- NOTE | 2021-09-05 11:10 | Progress Note ---
Assessment and Plan Assessment and plan: This is a 51-year-old male current Tobacco and THC smoker, with no known past medical history admitted for STEMI s/p emergent PCI to the [facility] to Date: 09/05: Stable on RA this am, denied any pain nor any dicomfort. On ASA, plavix, statin, and BB. D/w Cardio plan to D/C heparin and Nitro gtts this am, okay to transfer patient to Telemetry and patient should be stable for discharge tomorrow. Assessment and Plan #STEMI (ST elevation myocardial infarction) - Presented with CP - EKG reveal acute Inferior ME - Cardiology on consult - 09/04 balloon angioplasty and drug-eluting 7 stent placement of the [facility] circum flex artery - Heparin and Nitro gtt X24hrs - On ASA, plavix, statin, and BB - D/w Cardio plan to D/C heparin and Nitro gtts this am, okay to transfer patient to Telemetry and patient should be stable for discharge tomorrow. #Hypertension - Initially presented with Hypotension probably due to dehydration, which resolved post IV hydration - Became hypertension post procedure s/p Nitro gtt - BP stable this am - Continue current antihypertensives - Continue blood pressure monitor per protocol - Maintain SBP less than 160 #Hyponatremia-resolved #Hypokalemia-resolved - K repleted, Na improved post IV hydration - Monitor and replace electrolytes as needed #Hyperglycemia-improved - HgbA1C- 6.1 - Continue BG and SSI ACHS - Avoid hypoglycemia #Nicotine Dependence #Marijuana Use - Smoking Cessation education and resources provided. Patient verbalized understanding of the info provided - Declined any urges at this time, patient declined Nicotine patch at this time #GI/DVT Prophylaxis - PPI- Pepcid - Heparin gtt - SCDs to bilateral lower extremities while in bed #Advance Care Planning - Disease education conducted, care plan discussed, diagnosis discussed, prognosis discussed. Patient is full code. Patient acknowledges understanding and agreement with care plan. - Possible discharge back home tomorrow The high probability of a clinically significant, sudden or life threatening deterioration of the [multiple] system(s) required my full and direct attention, intervention and personal management. The aggregate critical care time was [60] minutes. This time is in addition to time spent performing reported procedures but includes the following: [x] Data Review and interpretation [x] Patient assessment and monitoring of vital signs [x] Documentation [x] Medication orders and management Disposition Plan: Transfer to Floor Total Time Spent with Patient (Minutes): 60 History Interval history: Patient seen and examined at the bedside. Fully AAO, on RA, denied any pain nor any discomfort at this time. Patient remains on Heparin and Nitro gtts. KANIKA overnight Hospitalist Physical - Constitutional Vitals: Temp Pulse Resp BP Pulse Ox 98.2 F 63 24 124/67 97 09/05/21 03:58 09/05/21 09:49 09/05/21 09:00 09/05/21 09:49 09/05/21 09:00 General appearance: Present: no acute distress, well-nourished, obese - EENT Eyes: Present: PERRL, EOM intact ENT: hearing intact - Neck Neck: Present: normal ROM - Respiratory Respiratory effort: normal Respiratory: bilateral: CTA - Cardiovascular Rhythm: regular Heart Sounds: Present: S1 & S2 - Extremities Extremities: no ischemia, pulses intact, pulses symmetrical Peripheral Pulses: within normal limits - Abdominal General gastrointestinal: soft, non-distended, normal bowel sounds - Integumentary Integumentary: Present: clear, warm, dry - Psychiatric Psychiatric: appropriate mood/affect, cooperative - Neurologic Neurologic: CNII-XII intact, moves all extremities - Allied Health Allied health notes reviewed: nursing HEART Score - HEART Score EKG: Significant ST-depression Age: < 45 Risk factors: 1-2 risk factors Troponin: Troponin T 1.380 ng/mL (0.00-0.029) H* D 09/04/21 21:07 Troponin: < normal limit - Critical Actions Critical Actions: 4-6 pts:12-16.6% risk of adverse cardiac event. Should be admitted Results - Labs CBC & Chem 7: 09/05/21 05:10 09/05/21 05:10 Labs: Laboratory Last Values WBC 5.9 K/mm3 (4.5-11.0) 09/05/21 05:10 RBC 4.94 M/mm3 (3.65-5.03) 09/05/21 05:10 Hgb 13.5 gm/dl (11.8-15.2) 09/05/21 05:10 Hct 41.2 % (35.5-45.6) 09/05/21 05:10 MCV 83 fl (84-94) L 09/05/21 05:10 MCH 27 pg (28-32) L 09/05/21 05:10 MCHC 33 % (32-34) 09/05/21 05:10 RDW 15.7 % (13.2-15.2) H 09/05/21 05:10 Plt Count 217 K/mm3 (140-440) 09/05/21 05:10 Lymph % (Auto) 30.3 % (13.4-35.0) 09/05/21 05:10 [place] % (Auto) 10.6 % (0.0-7.3) H 09/05/21 05:10 Eos % (Auto) 1.2 % (0.0-4.3) 09/05/21 05:10 Baso % (Auto) 0.3 % (0.0-1.8) 09/05/21 05:10 Lymph # (Auto) 1.8 K/mm3 (1.2-5.4) 09/05/21 05:10 [place] # (Auto) 0.6 K/mm3 (0.0-0.8) 09/05/21 05:10 Eos # (Auto) 0.1 K/mm3 (0.0-0.4) 09/05/21 05:10 Baso # (Auto) 0.0 K/mm3 (0.0-0.1) 09/05/21 05:10 Seg Neutrophils % 57.6 % (40.0-70.0) 09/05/21 05:10 Seg Neutrophils # 3.4 K/mm3 (1.8-7.7) 09/05/21 05:10 PT 13.6 Sec. (12.2-14.9) 09/04/21 21:07 INR 0.94 (0.87-1.13) 09/04/21 21:07 APTT 46.5 Sec. (24.2-36.6) H 09/04/21 21:07 Heparin Anti-Xa Level 0.14 U.I./ml (0.3-0.7) L 09/05/21 05:10 Sodium 138 mmol/L (137-145) D 09/05/21 05:10 Potassium 4.7 mmol/L (3.6-5.0) D 09/05/21 05:10 Chloride 104.3 mmol/L (98-107) 09/05/21 05:10 Carbon Dioxide 24 mmol/L (22-30) 09/05/21 05:10 Anion Gap 14 mmol/L 09/05/21 05:10 BUN 13 mg/dL (9-20) 09/05/21 05:10 Creatinine 0.8 mg/dL (0.8-1.3) 09/05/21 05:10 Estimated GFR > 60 ml/min 09/05/21 05:10 BUN/Creatinine Ratio 16 % 09/05/21 05:10 Glucose 117 mg/dL (75-100) H 09/05/21 05:10 POC Glucose 140 mg/dL (70-105) H 09/04/21 22:38 Hemoglobin A1c 6.1 % (4-6) H 09/04/21 21:07 Calcium 8.6 mg/dL (8.4-10.2) 09/05/21 05:10 Total Bilirubin 0.30 mg/dL (0.1-1.2) 09/05/21 05:10 AST 55 units/L (5-40) H 09/05/21 05:10 ALT 32 units/L (7-56) 09/05/21 05:10 Alkaline Phosphatase 73 units/L (35-129) 09/05/21 05:10 Total Creatine Kinase 807 units/L (55-170) H 09/04/21 21:07 CK-MB (CK-2) 67.8 ng/mL (0.0-4.0) H 09/04/21 21:07 CK-MB (CK-2) Rel Index 8.4 (0-4) H 09/04/21 21:07 Troponin T 1.380 ng/mL (0.00-0.029) H* D 09/04/21 21:07 Total Protein 6.4 g/dL (6.3-8.2) 09/05/21 05:10 Albumin 3.9 g/dL (3.9-5) 09/05/21 05:10 Albumin/Globulin Ratio 1.6 % 09/05/21 05:10 Triglycerides 158 mg/dL (2-149) H 09/04/21 21:07 Cholesterol 195 mg/dL (50-199) 09/04/21 21:07 LDL Cholesterol Direct 147 mg/dL (50-130) H 09/04/21 21:07 HDL Cholesterol 32 mg/dL (40-59) L 09/04/21 21:07 Cholesterol/HDL Ratio 6.09 % 09/04/21 21:07 Blood Type A POSITIVE 09/04/21 10:30 Antibody Screen Negative 09/04/21 10:30 Teran/IV: Voiding Method Urinal Active Medications - Current Medications Current Medications: Generic Name Dose Route Start Last Admin Trade Name Freq PRN Reason Stop Dose Admin Acetaminophen 650 mg 09/04/21 11:03 Acetaminophen 325 Mg Tab PO Q4H PRN Fever >100.5/HAWTHORNE Hydrocodone Bitart/Acetaminophen 1 each 09/04/21 12:07 09/04/21 22:41 Hydrocodone/Acetaminophen 5-325 Mg Tab PO 1 each Q4H PRN Administration Pain, Moderate (4-6) Aspirin 81 mg 09/05/21 10:00 09/05/21 09:49 Aspirin 81 Mg Tab Chew PO 81 mg QDAY GRACE Administration Atorvastatin Calcium 80 mg 09/04/21 22:00 09/04/21 22:42 Atorvastatin 40 Mg Tab PO 80 mg QHS GRACE Administration Clopidogrel Bisulfate 75 mg 09/05/21 10:00 Clopidogrel 75 Mg Tab PO QDAY GRACE Dextrose 50 ml 09/04/21 15:29 Dextrose 50% In Water (25gm) 50 Ml Syringe IV Q30MIN PRN Hypoglycemia Protocol Famotidine 20 mg 09/04/21 22:00 09/04/21 22:44 Famotidine 20 Mg Tab PO 20 mg QHS GRACE Administration Heparin Sodium (Porcine) 4,800 unit 09/04/21 13:07 Heparin 10,000 Units/10 Ml Vial 40 unit/kg (4800 unit) IV Q6H PRN Anti-Xa Assay < 0.1 units/ml Heparin Sodium/Sodium Chloride 25,000 unit in 500 mls @ 20 mls/hr 09/04/21 14: 00 09/05/21 09:55 Heparin/ 0.45% Nacl-25,000 Unit/500 Ml IV 09/05/21 13:59 0 units/hr TITRATE GRACE 0 mls/hr Titration Protocol 1,000 UNITS/HR Nitroglycerin/Dextrose 50 mg in 250 mls @ 3 mls/hr 09/04/21 17:00 09/05/21 10:21 Tridil Drip 50mg/250ml IV Infused TITR GRACE Titration Protocol 10 MCG/MIN Insulin Human Lispro 0 unit 09/05/21 07:30 09/05/21 09:20 Insulin Lispro 100 Unit/Ml SUB-Q Not Given ACHS COUNT INCLUDES THE [facility] Protocol Metoclopramide HCl 10 mg 09/04/21 11:05 Metoclopramide 10 Mg/2 Ml Inj IV Q6H PRN Nausea And Vomiting Metoprolol Tartrate 50 mg 09/04/21 22:00 09/05/21 09:49 Metoprolol Tartrate 50 Mg Tab PO 50 mg BID GRACE Administration Ondansetron HCl 4 mg 09/05/21 10:00 Ondansetron 4 Mg/2 Ml Inj IV Q8H PRN Nausea And Vomiting Sodium Chloride 10 ml 09/04/21 22:00 09/04/21 22:46 Sodium Chloride 0.9% 10 Ml Flush Syringe IV 10 ml BID GRACE Administration Sodium Chloride 10 ml 09/04/21 11:03 Sodium Chloride 0.9% 10 Ml Flush Syringe IV PRN PRN LINE FLUSH Tramadol HCl 50 mg 09/04/21 12:07 Tramadol 50 Mg Tab PO Q4H PRN Pain, Mild (1-3)
--- NOTE | 2021-09-05 12:21 | Consultation ---
DATE OF CONSULTATION: 09/04/2021 PULMONARY CRITICAL CARE CONSULT NOTE CONSULTING PHYSICIAN: Dr. Bynum, Emergency Room physician. REASON FOR CONSULTATION: Acute ST-elevation myocardial infarction. CHIEF COMPLAINT AND HISTORY OF PRESENT ILLNESS: The patient is a 51-year-old obese gentleman who denied any real past medical history, brought in by [facility]. He said he was visiting his occupational medicine officer at the office and he signed in and went back to his car to wait for the officer. He developed a slight chest pain nothing he thought about. He walked back into the office again, his name had not been called. When he came back to the car outside, he developed a sudden crushing pain over the chest wall anteriorly. He also had some left shoulder discomfort. He became really short of breath, he walked back into the probation office, told them that he thought he was having a heart attack and while taking a walk back to a chair, he collapsed. Emergency Medical Services were called. It is unclear if he actually had a complete cardiac arrest and needed resuscitation, the history does not suggest so. In the Emergency Room, he was evaluated and found to have evidence of an inferior wall STEMI. slabbing machine operator was activated. He was taken into the cath laboratory technician and in the cath laboratory technician, the angiography was done and it revealed he had a complete circumflex 100% occlusion, LAD 30%, RCA 50% and he had a stent placed in the circumference. The approach was a right radial approach. Post-procedure, he was brought into the intensive care unit where I stopped by to see him. When I stopped by to see him, he was resting in bed. He was pain free, feeling a little bit better. He admits to a 10+ pack year tobacco smoking history. He was also started on a nitro drip going at 20 mcg per minute and started on IV heparin therapy, status post bolus. He denies any gross bleeding diathesis. This really is as much of the history of presentation as I have. PAST MEDICAL HISTORY: Obesity. PAST SURGICAL HISTORY: Unknown. MEDICATIONS: He was on at the time I stopped by to see him, according to the medication administration record included the following: Tylenol 650 mg p.o. q. 4 hours p.r.n. mild pain or fevers, [place] 5/325 one tablet p.o. q. 4 hours p.r.n. moderate pain, aspirin 81 mg p.o. daily, Lipitor 80 mg p.o. at bedtime, Plavix 300 mg p.o. one time dose and 75 mg p.o. daily, heparin drip was started at 1000 units per hour per ACS protocol, Reglan 10 mg IV q. 6 hours p.r.n. nausea and vomiting, metoprolol 50 mg p.o. b.i.d., Zofran 4 mg IV q. 3 hours p.r.n. nausea and vomiting. He has 2 doses of KCl 40 mEq p.o. scheduled. Tramadol 50 mg p.o. q. 4 hours p.r.n. mild pain. ALLERGIES: No known drug allergies. DIET: Obese gentleman, acute weight loss or gain history is unknown. FAMILY AND SOCIAL HISTORY: Lives in the community, has a 10+ pack year tobacco smoking history. Denies illicit drug use or abuse. FAMILY HISTORY: Otherwise, noncontributory. REVIEW OF SYSTEMS: He had the loss of consciousness. He denies any new-onset seizures. Denies new onset focal weakness. Denies gross hematochezia or melena. Denies gross hematuria or dysuria. He denied similar symptoms to this. He denies palpitations. A complete 13-system review of system was obtained as best as I could. Pertinent positives and/or negatives as in body of history above, otherwise noncontributory. PHYSICAL EXAMINATION: VITAL SIGNS: On presentation in the Emergency Room and since the first temperature I have is 97.3 degrees Fahrenheit, his pulse was 70 at presentation, respiratory rate 23, blood pressure 142/88, O2 sats were 94%, inspired oxygen concentration at that time was not recorded. When I stopped by to see him, O2 sats were 98% on room air. GENERAL: He is a middle-aged obese male. Normocephalic, atraumatic. Talking to me in full sentences without significantly increased respiratory effort at rest. He is looking a little bit anxious. HEAD, EYES, EARS, NOSE AND THROAT: Anicteric. No conjunctival erythema. Oropharynx is moist. NECK: No gross jugular venous distention, no thyromegaly. Grossly, there were no palpable lymph nodes in the supraclavicular or submandibular lymph node chains. LUNGS: Auscultation of both lung burgess unremarkable. Good bilateral air movement. No wheezing. HEART: Sounds 1 and 2 are heard at the time of my evaluation, regular rate and rhythm without overt rubs or murmurs. ABDOMEN: Soft, flat, bowel sounds are positive, nontender, no palpable hepatosplenomegaly. EXTREMITIES: Without overt digital clubbing or cyanosis, no pedal edema. Pedal pulses are 2+ bilaterally. NEUROLOGIC: Pupils were equal, round, about 4 mm, reactive to light. Extraocular muscle movements were intact. He moves all 4 extremities spontaneously. SKIN: Normal turgor in the areas examined without overt cellulitis or rash. Please see the registered nurses and wound care nurses' notes for full description of his skin. He did have the introductory site for the right radial catheterization, no significant bleeding at the stoma site. PSYCHIATRIC: Mood was normal. Affect was somewhat anxious. He had intact judgment and insight. LABORATORY DATA: From my review, white cell count 5900, hemoglobin 14.3, hematocrit 43.4, platelet count 260. No manual differential. INR within normal limits. Serum sodium 128, potassium 3.1, chloride 95, bicarbonate 23, BUN 16, creatinine 0.8, glucose 154. Liver function test within normal limits. Initial troponin was less than 0.01. Albumin is 4.0. No microbiology studies for my review. No radiographic imaging studies for my review. ASSESSMENT: 1. Acute ST-elevation myocardial infarction, status post stenting. 2. Obesity. 3. Tobacco use disorder. 4. Hypokalemia at presentation. 5. Hyperglycemia. PLAN: I have strongly counseled him against tobacco use and encouraged tobacco cessation. I will also put him on a sliding scale and get an A1c to evaluate for diabetes and make sure that this is not also a contributory factor that could be secondarily prevented. He has been started on other secondary prevention modalities including the antilipid therapy. He will need the blood pressure control. I will get a lipid profile and address as necessary. He is fully anticoagulated at this point, I am going to put him also on GI prophylaxis. Flu and pneumonia vaccination will be addressed per protocol. Thank you very much for the consult. We will follow along and make further recommendations as picture progresses/becomes clearer. TID: [id number] RECEIPT: [id number] [facility]
[2021-09-05] MEDS: CLOPIDOGREL 75 MG TAB PO SCH (13:13)
--- NOTE | 2021-09-05 13:29 | Progress Note ---
Assessment and Plan Acute ST-elevation myocardial infarction s/p PCI Obesity Tobacco use disorder Hypokalemia at presentation Hyperglycemia - continue secondary prevention - continue statin therapy, BP control - continue antiplatelet therapy with Plavix - tobacco abstinence strongly counseled at the bedside - supplemental oxygen to keep O2 sats > 90% - prn bronchodilators (SHAKIRA) with pulm hygiene per RT - avoid nephrotoxins, renally dose all medications - mobility protocols to prevent pressure ulcers - PT/OT as tolerated - Wound care per RN/WCT - accuchecks with glycemic control per SSI for target blood glucose < 180 mg/dL - home oxygen evaluation at discharge - GI & VTE prophylaxis - Flu & pneumovax per protocol - continue other care per attending / other consultants - prn analgesia per pain score ... re-evaluate in am & prn Subjective Date of service: 09/05/21 Principal diagnosis: Acute STEMI; Obesity; Tobacco use disorder; Hypokalemia; Hyperglycemia Interval history: Patient is seen today for: Acute STEMI; Obesity; Tobacco use disorder; Hypokalemia; Hyperglycemia Seen and examined at bedside; 24hour events reviewed; nursing and respiratory care staff consulted; no adverse overnight events reported to me; resting peacefully in bed; doing better; denies chest pain; denies N/V/F/C; denies SOB at rest Objective Vital Signs - 12hr 09/05/21 09/05/21 09/05/21 01:30 02:00 02:30 Temperature Pulse Rate 62 58 L 60 Pulse Rate [ Bilateral Radial] Pulse Rate [ From Monitor] Respiratory 17 16 15 Rate Blood Pressure 148/83 138/72 125/71 O2 Sat by Pulse 96 96 97 Oximetry 09/05/21 09/05/21 09/05/21 03:00 03:30 03:58 Temperature 98.2 F Pulse Rate 56 L 62 Pulse Rate [ Bilateral Radial] Pulse Rate [ From Monitor] Respiratory 16 13 Rate Blood Pressure 128/73 129/74 O2 Sat by Pulse 97 97 Oximetry 09/05/21 09/05/21 09/05/21 04:00 04:30 05:00 Temperature Pulse Rate 62 62 58 L Pulse Rate [ Bilateral Radial] Pulse Rate [ From Monitor] Respiratory 20 18 18 Rate Blood Pressure 136/80 129/76 116/74 O2 Sat by Pulse 97 97 96 Oximetry 09/05/21 09/05/21 09/05/21 05:30 06:00 06:30 Temperature Pulse Rate 57 L 62 59 L Pulse Rate [ Bilateral Radial] Pulse Rate [ From Monitor] Respiratory 20 19 15 Rate Blood Pressure 122/73 109/72 119/79 O2 Sat by Pulse 98 95 98 Oximetry 09/05/21 09/05/21 09/05/21 07:00 07:30 08:00 Temperature 97.5 F L Pulse Rate 66 57 L 60 Pulse Rate [ Bilateral Radial] Pulse Rate [ 60 From Monitor] Respiratory 22 14 17 Rate Blood Pressure 112/85 135/81 134/74 O2 Sat by Pulse 98 97 98 Oximetry 09/05/21 09/05/21 09/05/21 08:30 09:00 09:30 Temperature Pulse Rate 73 60 65 Pulse Rate [ Bilateral Radial] Pulse Rate [ From Monitor] Respiratory 13 24 26 H Rate Blood Pressure 111/56 122/63 120/65 O2 Sat by Pulse 97 97 97 Oximetry 09/05/21 09/05/21 09/05/21 09:49 10:00 11:00 Temperature Pulse Rate 63 Pulse Rate [ 61 66 Bilateral Radial] Pulse Rate [ From Monitor] Respiratory 21 18 Rate Blood Pressure 124/67 121/67 141/74 O2 Sat by Pulse 96 98 Oximetry 09/05/21 09/05/21 09/05/21 12:00 12:33 13:00 Temperature 98 F Pulse Rate 63 Pulse Rate [ 64 67 Bilateral Radial] Pulse Rate [ 63 From Monitor] Respiratory 23 16 Rate Blood Pressure 133/86 152/84 O2 Sat by Pulse 97 98 Oximetry Constitutional: no acute distress Eyes: non-icteric ENT: oropharynx moist Neck: supple, no lymphadenopathy, no JVD Effort: normal Ascultation: Bilateral: clear Percussion: Bilateral: not dull Cardiovascular: regular rate and rhythm Gastrointestinal: normoactive bowel sounds, soft, non-tender, non-distended Integumentary: normal Extremities: no cyanosis, no edema, pulses normal, no ischemia or petechiae Neurologic: non-focal exam, pupils equal and round, CN II-XII normal, motor strength normal and Psychiatric: mood appropriate, affect normal CBC and BMP: 09/05/21 05:10 09/05/21 05:10 ABG, PT/INR, D-dimer: PT/INR, D-dimer PT 13.6 Sec. (12.2-14.9) 09/04/21 21:07 INR 0.94 (0.87-1.13) 09/04/21 21:07 Abnormal lab findings: Abnormal Labs 09/04/21 09/04/21 09/04/21 09:39 09:39 09:39 RBC 5.26 H MCV 82 L MCH 27 L RDW 15.6 H Lymph % (Auto) 42.0 H [place] % (Auto) 13.6 H APTT 194.7 H* Heparin Anti-Xa Level Sodium 131 L Potassium 2.9 L* Chloride 97.4 L Carbon Dioxide 18 L Glucose 160 H POC Glucose Hemoglobin A1c AST Total Creatine Kinase CK-MB (CK-2) CK-MB (CK-2) Rel Index Troponin T Triglycerides LDL Cholesterol Direct HDL Cholesterol 09/04/21 09/04/21 09/04/21 11:07 12:37 17:51 RBC MCV MCH RDW Lymph % (Auto) [place] % (Auto) APTT Heparin Anti-Xa Level Sodium 128 L Potassium 3.1 L Chloride 95.0 L Carbon Dioxide Glucose 154 H POC Glucose 116 H Hemoglobin A1c AST Total Creatine Kinase 189 H CK-MB (CK-2) 11.6 H CK-MB (CK-2) Rel Index 6.1 H Troponin T 0.093 H Triglycerides LDL Cholesterol Direct HDL Cholesterol 09/04/21 09/04/21 09/04/21 21:07 21:07 21:07 RBC MCV MCH RDW Lymph % (Auto) [place] % (Auto) APTT 46.5 H Heparin Anti-Xa Level Sodium Potassium Chloride Carbon Dioxide Glucose POC Glucose Hemoglobin A1c 6.1 H AST Total Creatine Kinase 807 H CK-MB (CK-2) 67.8 H CK-MB (CK-2) Rel Index 8.4 H Troponin T 1.380 H* D Triglycerides LDL Cholesterol Direct HDL Cholesterol 09/04/21 09/04/21 09/05/21 21:07 22:38 05:10 RBC MCV 83 L MCH 27 L RDW 15.7 H Lymph % (Auto) [place] % (Auto) 10.6 H APTT Heparin Anti-Xa Level Sodium Potassium Chloride Carbon Dioxide Glucose POC Glucose 140 H Hemoglobin A1c AST Total Creatine Kinase CK-MB (CK-2) CK-MB (CK-2) Rel Index Troponin T Triglycerides 158 H LDL Cholesterol Direct 147 H HDL Cholesterol 32 L 09/05/21 09/05/21 09/05/21 05:10 05:10 08:23 RBC MCV MCH RDW Lymph % (Auto) [place] % (Auto) APTT Heparin Anti-Xa Level 0.14 L Sodium Potassium Chloride Carbon Dioxide Glucose 117 H POC Glucose 108 H Hemoglobin A1c AST 55 H Total Creatine Kinase CK-MB (CK-2) CK-MB (CK-2) Rel Index Troponin T Triglycerides LDL Cholesterol Direct HDL Cholesterol 09/05/21 11:16 RBC MCV MCH RDW Lymph % (Auto) [place] % (Auto) APTT Heparin Anti-Xa Level Sodium Potassium Chloride Carbon Dioxide Glucose POC Glucose 147 H Hemoglobin A1c AST Total Creatine Kinase CK-MB (CK-2) CK-MB (CK-2) Rel Index Troponin T Triglycerides LDL Cholesterol Direct HDL Cholesterol Allied health notes reviewed: nursing
[2021-09-05] MEDS: FAMOTIDINE 20 MG TAB PO SCH (21:27)
[2021-09-06] MEDS: INSULIN LISPRO 100 UNIT/ML SUB-Q SCH (10:13)
--- NOTE | 2021-09-06 10:37 | Progress Note ---
Assessment and Plan Patient is a 51-year-old male who denies any past medical history who presented with chest pain and findings consistent with a lateral STEMI. STEMI s/p PCI of mid circumflex w/ florencia Tobacco use Plan: Continue Plavix aspirin statin and beta-blockade. Echocardiogram is reviewed with patient and is essentially unremarkable. Patient is entirely asymptomatic. Long discussion regarding importance of diet lifestyle modifications and smoking cessation. Also importance of compliance with medications especially dual antiplatelet therapy reiterated. Patient absolutely needs to chart picker his prescriptions today. He expresses understanding. Discussed importance of risk factor modification and lifestyle changes. May go home and follow-up with Dr. Perez in the office in 1 week. - Patient Problems (1) Marijuana use Current Visit: Yes Status: Acute (2) STEMI (ST elevation myocardial infarction) Current Visit: Yes Status: Acute Subjective Principal diagnosis: Acute STEMI; Obesity; Tobacco use disorder; Hypokalemia; Hyperglycemia Interval history: Patient is seen at bedside. Nurse also at bedside. Feeling great and no chest pain. Objective Vital Signs Temp Pulse Pulse Pulse Resp BP Pulse Ox 09/06/21 08:11 98.4 F 71 18 148/88 97 09/06/21 05:42 63 13 99 09/06/21 04:00 75 09/06/21 03:20 97.8 F 68 18 130/82 97 09/06/21 00:00 75 09/05/21 21:26 65 09/05/21 20:00 65 09/05/21 19:38 97.8 F 64 19 152/86 98 09/05/21 16:30 100 09/05/21 16:26 97.7 F 70 18 174/119 95 09/05/21 16:00 68 09/05/21 13:00 67 16 152/84 98 09/05/21 12:33 98 F 09/05/21 12:00 63 64 63 23 133/86 97 09/05/21 11:00 66 18 141/74 98 - Physical Examination HEENT: Positive: PERRL Neck: Positive: trachea midline Neuro: Positive: Grossly Intact Abdomen: Positive: Soft, Active Bowel Sounds Skin: Negative: Rash, Suspicious Lesions, Ulceration Extremities: Present: upper extr. pulses. Absent: edema - Imaging and Cardiology EKG: report reviewed (ST elevation MN in the inferior wall leads) Echo: pending Cardiac cath: pending - EKG Sinus rhythms and dysrhythmias: sinus rhythm Myocardial infarction: inferior MN (acute or rec - Allied health notes Allied health notes reviewed: nursing
[2021-09-06] MEDS: ASPIRIN 81 MG TAB CHEW PO SCH (10:38)
[2021-09-06] MEDS: METOPROLOL TARTRATE 50 MG TAB PO SCH (10:40)
[2021-09-06] MEDS: CLOPIDOGREL 75 MG TAB PO SCH (10:40)
[2021-09-06 12:15] VITALS: BP 149/87
--- NOTE | 2021-09-06 12:31 | Discharge Summary ---
Providers - Providers Date of Admission: 09/04/21 11:03 Date of discharge: 09/06/21 Attending physician: EBONIE HARDING 09/04/21 09:17 Consult to Physician [CONS] Stat Comment: Consulting Provider: NATHALY GOMEZ Physician Instructions: Reason For Exam: STEMI Consult to Physician [CONS] Urgent Comment: Consulting Provider: BRUNO BUSTILLO Physician Instructions: Reason For Exam: STEMI 09/04/21 12:07 Consult to Cardiac Rehabilitation [CONS] Routine Reason For Exam: Cardiac Rehab Evaluation Primary care physician: [employer] Hospitalization Condition: Critical Hospital course: Assessment and Plan Assessment and plan: This is a 51-year-old male current Tobacco and THC smoker, with no known past medical history admitted for STEMI [facility] Date: [facility]05: Stable on RA this am, denied any pain nor any dicomfort. On ASA, plavix, statin, and BB. D/w Cardio plan to D/C heparin and Nitro gtts this am, okay to transfer patient to Telemetry and patient should be stable for discharge tomorrow. 09/06/2021 Patient medically stable Patient to be discharged on aspirin and Plavix Patient to be follow-up with [facility] affiliation Assessment and Plan #STEMI (ST elevation myocardial infarction) - Presented with CP - EKG reveal acute Inferior NM - Cardiology on consult - 09/04 balloon angioplasty and drug-eluting 7 stent placement of the mid circu mflex artery - Heparin and Nitro gtt X24hrs - On ASA, plavix, statin, and BB - D/w Cardio plan to D/C heparin and Nitro gtts this am, okay to transfer patient to Telemetry and patient should be stable for discharge tomorrow. #Hypertension - Initially presented with Hypotension probably due to dehydration, which resolved post IV hydration - Became hypertension post procedure s/p Nitro gtt - BP stable this am - Continue current antihypertensives - Continue blood pressure monitor per protocol - Maintain SBP less than 160 #Hyponatremia-resolved #Hypokalemia-resolved - K repleted, Na improved post IV hydration - Monitor and replace electrolytes as needed #Hyperglycemia-improved - HgbA1C- 6.1 - Continue BG and SSI ACHS - Avoid hypoglycemia #Nicotine Dependence #Marijuana Use - Smoking Cessation education and resources provided. Patient verbalized understanding of the info provided - Declined any urges at this time, patient declined Nicotine patch at this time #GI/DVT Prophylaxis - PPI- Pepcid - Heparin gtt - SCDs to bilateral lower extremities while in bed #Advance Care Planning - Disease education conducted, care plan discussed, diagnosis discussed, prognosis discussed. Patient is full code. Patient acknowledges understanding and agreement with care plan. - Possible discharge back home tomorrow Disposition: HOME / SELF CARE / HOMELESS Final Discharge Diagnosis (Prints w/discharge instructions): STEMI. Hypertension. T2DM. Coronary artery disease. Nicotine dependence Time spent for discharge: 35 minutes - Discharge Diagnoses (1) STEMI (ST elevation myocardial infarction) Status: Acute (2) Hypotension Status: Acute (3) Syncope and collapse Status: Acute (4) Hypokalemia Status: Acute (5) Hyponatremia Status: Acute (6) Nicotine dependence Status: Chronic Qualifiers: Nicotine product type: cigarettes (7) Marijuana use Status: Acute (8) DVT prophylaxis Status: Acute (9) Advance care planning Status: Acute Core Measure Documentation - Palliative Care Palliative Care/ Comfort Measures: Not Applicable - Core Measures Any of the following diagnoses?: none Exam - Constitutional Vitals: Temp Pulse Resp BP Pulse Ox 98.2 F 69 18 149/87 95 09/06/21 11:16 09/06/21 11:16 09/06/21 11:16 09/06/21 11:16 09/06/21 11:16 General appearance: Present: no acute distress, well-nourished - EENT Eyes: Present: PERRL ENT: hearing intact, clear oral mucosa - Neck Neck: Present: supple, normal ROM - Respiratory Respiratory effort: normal Respiratory: bilateral: CTA - Cardiovascular Heart rate: 78 Rhythm: regular Heart Sounds: Present: S1 & S2. Absent: rub, click - Extremities Extremities: pulses symmetrical, No edema Peripheral Pulses: within normal limits - Abdominal General gastrointestinal: Present: soft, non-tender, non-distended, normal bowel sounds Male genitourinary: Present: normal - Integumentary Integumentary: Present: clear, warm, dry - Musculoskeletal Musculoskeletal: gait normal, strength equal bilaterally - Psychiatric Psychiatric: appropriate mood/affect, intact judgment & insight - Neurologic Neurologic: CNII-XII intact, moves all extremities Plan Activity: no restrictions Diet: low cholesterol, low salt Follow up with: TANNER STRONG MD [Staff Physician] - 7 Days NATHALY GOMEZ MD [Staff Physician] - 7 Days
--- NOTE | 2021-09-06 12:38 | Event Note ---
Date: 09/06/21 JACKY Chun was admitted on September 04, 2021 for acute medical illness. Patient is being discharged on September 06, 2021. Return to work on September 09, 2021
--- NOTE | 2021-09-06 14:56 | Progress Note ---
Subjective Date of service: 09/06/21 Principal diagnosis: Acute STEMI; Obesity; Tobacco use disorder; Hypokalemia; Hyperglycemia Interval history: Patient discharged before I see the patient. Objective Vital Signs - 12hr 09/06/21 09/06/21 09/06/21 03:20 04:00 05:42 Temperature 97.8 F Pulse Rate 68 75 Pulse Rate [ 63 From Monitor] Respiratory 18 13 Rate Blood Pressure 130/82 O2 Sat by Pulse 97 99 Oximetry 09/06/21 09/06/21 09/06/21 08:11 10:40 11:16 Temperature 98.4 F 98.2 F Pulse Rate 71 66 69 Pulse Rate [ From Monitor] Respiratory 18 18 Rate Blood Pressure 148/88 149/87 O2 Sat by Pulse 97 95 Oximetry Effort: normal CBC and BMP: 09/05/21 05:10 09/05/21 05:10 ABG, PT/INR, D-dimer: PT/INR, D-dimer PT 13.6 Sec. (12.2-14.9) 09/04/21 21:07 INR 0.94 (0.87-1.13) 09/04/21 21:07 Abnormal lab findings: Abnormal Labs 09/04/21 09/04/21 09/04/21 09:39 09:39 09:39 RBC 5.26 H MCV 82 L MCH 27 L RDW 15.6 H Lymph % (Auto) 42.0 H [place] % (Auto) 13.6 H APTT 194.7 H* Heparin Anti-Xa Level Sodium 131 L Potassium 2.9 L* Chloride 97.4 L Carbon Dioxide 18 L Glucose 160 H POC Glucose Hemoglobin A1c AST Total Creatine Kinase CK-MB (CK-2) CK-MB (CK-2) Rel Index Troponin T Triglycerides LDL Cholesterol Direct HDL Cholesterol 09/04/21 09/04/21 09/04/21 11:07 12:37 17:51 RBC MCV MCH RDW Lymph % (Auto) [place] % (Auto) APTT Heparin Anti-Xa Level Sodium 128 L Potassium 3.1 L Chloride 95.0 L Carbon Dioxide Glucose 154 H POC Glucose 116 H Hemoglobin A1c AST Total Creatine Kinase 189 H CK-MB (CK-2) 11.6 H CK-MB (CK-2) Rel Index 6.1 H Troponin T 0.093 H Triglycerides LDL Cholesterol Direct HDL Cholesterol 04/09/04/21 09/04/21 21:07 21:07 21:07 RBC MCV MCH RDW Lymph % (Auto) [place] % (Auto) APTT 46.5 H Heparin Anti-Xa Level Sodium Potassium Chloride Carbon Dioxide Glucose POC Glucose Hemoglobin A1c 6.1 H AST Total Creatine Kinase 807 H CK-MB (CK-2) 67.8 H CK-MB (CK-2) Rel Index 8.4 H Troponin T 1.380 H* D Triglycerides LDL Cholesterol Direct HDL Cholesterol 09/04/21 09/04/21 09/05/21 21:07 22:38 05:10 RBC MCV 83 L MCH 27 L RDW 15.7 H Lymph % (Auto) [place] % (Auto) 10.6 H APTT Heparin Anti-Xa Level Sodium Potassium Chloride Carbon Dioxide Glucose POC Glucose 140 H Hemoglobin A1c AST Total Creatine Kinase CK-MB (CK-2) CK-MB (CK-2) Rel Index Troponin T Triglycerides 158 H LDL Cholesterol Direct 147 H HDL Cholesterol 32 L 09/05/21 09/05/21 09/05/21 05:10 05:10 08:23 RBC MCV MCH RDW Lymph % (Auto) [place] % (Auto) APTT Heparin Anti-Xa Level 0.14 L Sodium Potassium Chloride Carbon Dioxide Glucose 117 H POC Glucose 108 H Hemoglobin A1c AST 55 H Total Creatine Kinase CK-MB (CK-2) CK-MB (CK-2) Rel Index Troponin T Triglycerides LDL Cholesterol Direct HDL Cholesterol 09/05/21 09/06/21 09/06/21 11:16 08:11 11:16 RBC MCV MCH RDW Lymph % (Auto) [place] % (Auto) APTT Heparin Anti-Xa Level Sodium Potassium Chloride Carbon Dioxide Glucose POC Glucose 147 H 117 H 115 H Hemoglobin A1c AST Total Creatine Kinase CK-MB (CK-2) CK-MB (CK-2) Rel Index Troponin T Triglycerides LDL Cholesterol Direct HDL Cholesterol Allied health notes reviewed: nursing
== END 2021-09-06 13:30 | disposition home or self-care (01) | DRG 247 ==
LOC: ED 09:14 → CC1 11:03 → 4A 09-05 14:25
PROVIDERS: ADMIT Internal Medicine; ATTEND Internal Medicine
PROC: 027034Z Dilation of Coronary Artery, One Artery with Drug-eluting Intraluminal Device, Percutaneous Approach (ICD-10-PCS; principal; 2021-09-04)
PROC: 4A023N7 Measurement of Cardiac Sampling and Pressure, Left Heart, Percutaneous Approach (ICD-10-PCS; 2021-09-04)
PROC: B2111ZZ Fluoroscopy of Multiple Coronary Arteries using Low Osmolar Contrast (ICD-10-PCS; 2021-09-04)
PROC: B2151ZZ Fluoroscopy of Left Heart using Low Osmolar Contrast (ICD-10-PCS; 2021-09-04)
DX: I21.3 ST elevation (STEMI) myocardial infarction of unspecified site (principal); E87.1 Hypo-osmolality and hyponatremia; I95.9 Hypotension, unspecified; E87.6 Hypokalemia; F17.210 Nicotine dependence, cigarettes, uncomplicated; Z71.6 Tobacco abuse counseling; E66.9 Obesity, unspecified; Z68.34 Body mass index [BMI] 34.0-34.9, adult; E11.65 Type 2 diabetes mellitus with hyperglycemia; Z82.49 Family history of ischemic heart disease and other diseases of the circulatory system
CPT/HCPCS: 36415; 80048; 80053; 80061; 82550; 82553; 82962; 83036; 84484; 85014; 85018; 85025; 85049; 85520; 85610; 85730; 86850; 86900; 86901; 92941; 93005; 93306; 93458; 96374; 96375; 99291; 99406; G0378; J1815; J3490; C1725; C1769; C1874; C1887; C1894; C8929; C9606; J1644; J2250; J2270; J2405; J3010; J7030; Q9967